=== PATIENT | female | born 1985 | race African-American/Black ===

== ENCOUNTER 2023-06-25 15:50 | Emergency (ER) | payer MEDICAID, SELFPAY ==
--- NOTE | 2023-06-25 15:52 | ED_ITS ---
HPI - General Adult General Chief complaint: Chest Pain Stated complaint: Vomiting/unable to eat Related Data Previous Rx's ?Medication ?Instructions ?Recorded blood sugar diagnostic (FreeStyle #300 ea 06/27/23 Lite Strips) blood-glucose meter (FreeStyle #1 ea 06/27/23 Lite Meter kit) lancets 28 gauge (FreeStyle #300 ea 06/27/23 Lancets) Allergies Allergy/AdvReac Type Severity Reaction Status Date / Time No Known Allergies Allergy Verified 12/27/23 12:41 [facility] Family History Family History Mother No problems noted. Father No problems noted. Daughter No problems noted. Daughter No problems noted. Daughter No problems noted. Brother No problems noted. Brother No problems noted. Brother No problems noted. Brother No problems noted. Brother No problems noted. Brother No problems noted. Social History Social History Housing: Other Alcohol intake: current Patient Tobacco Use Status: Never used Tobacco e-Cigarette/Vaping Use: Never Used Second Hand Smoke Exposure: No Current occupational status: unemployed Cognitive needs: No Hearing needs: No Vision needs: No Physical Exam ED Vital Signs: BMI result Body Mass Index 26.1 Course Course Course Narrative: This is an RME: Additional HPI, ROS, PE not included below will be deferred to primary provider. 38 y o female presenting for evaluation of shortness of breath and poor PO intake x few days. Reports she is unable to eat. Also reports that walking worsens her shortness of breath. Plan -- labs, EKG Medical Decision Making Lab Data 06/25/23 16:25 06/25/23 16:25 Labs: Lab Results 06/25/23 06/25/23 06/25/23 Range/Units 16:25 19:07 19:14 WBC 6.7 (4.8-10.8) X10*3/uL RBC 4.22 (4.20-5.50) X10*6/uL Hgb 11.5 L (12.0-16.0) g/dl Hct 34.3 L (37.0-47.0) % MCV 81.3 (80.0-98.0) fL MCH 27.3 (27.0-33.0) pg MCHC 33.5 (31.0-35.0) g/dl RDW 15.9 (11.0-16.0) % Plt Count 251 (160-400) X10*3/uL MPV 12.0 (9.4-12.3) fL Immature Gran % (Auto) 0.3 (0.0-0.4) % Neut % (Auto) 49.4 (45-73) % Lymph % (Auto) 42.5 H (20-40) % [place] % (Auto) 6.6 (2-11) % Eos % (Auto) 0.3 (0-4) % Baso % (Auto) 0.9 (0-2) % Lymph # (Auto) 2.9 (1.2-4.9) X10*3/uL [place] # (Auto) 0.4 (0.1-1.2) X10*3/uL Eos # (Auto) 0.0 (0.0-0.4) X10*3/uL Baso # (Auto) 0.1 (0.0-0.2) X10*3/uL Abs Immat Gran (auto) 0.02 (0.00-0.03) X10*3/uL Absolute Neuts (auto) 3.3 (2.0-8.3) x10*3/uL Absolute Nucleated RBC 0.000 (0.0-0.012) X10*3/uL Nucleated RBC % (auto) 0.0 (0.0-0.2) /100WBC VBG pH 7.40 (7.32-7.43) VBG pCO2 43 mmHg VBG pO2 32 mmHg VBG HCO3 26 (22-26) mmol/L VBG O2 Saturation 46.0 % VBG Base Excess 1.8 mmol/L Sodium 130 L (135-145) mmol/L Potassium 4.1 (3.3-5.1) mmol/L Chloride 98 (96-108) mmol/L Carbon Dioxide 22 (22-29) mmol/L Anion Gap 14 (12-20) BUN 8 L (9-16) mg/dL Creatinine 1.17 (0.5-1.4) mg/dL Estim Creat Clear Calc 55.8 Estimated GFR 52 Random Glucose 647 H* (60-115) mg/dL Calcium 9.4 (8.4-10.2) mg/dL Magnesium 1.6 (1.6-2.6) mg/dL Total Bilirubin 0.5 (0.0-1.0) mg/dL AST 11 (5-31) U/L ALT 6 (0-31) U/L Alkaline Phosphatase 83 (39-117) U/L Troponin I High Sens < 2.7 (<3.5-17.0) ng/L Total Protein 6.9 (6.5-8.0) g/dL Albumin 3.6 (3.5-5.0) g/dL Beta-Hydroxybutyrate 1.49 H (0.02-0.27) mmol/L Beta HCG, Quant < 2 mIU/mL Discharge Plan Discharge Clinical Impression: Eloped from emergency department Patient Disposition: Left W/O Completing Treatment Prescriptions: No Action (DME) blood-glucose meter [FreeStyle Lite Meter] Kit See Rx Instructions .ROUTE .MEDSUPPLY Qty: 1 0RF Rx Instructions: As directed (DME) FreeStyle Lite Strips Strip See Rx Instructions .ROUTE .MEDSUPPLY Qty: 300 3RF Rx Instructions: As directed check the BS TID (DME) lancets [FreeStyle Lancets] 28 gauge misc See Rx Instructions .ROUTE .MEDSUPPLY Qty: 300 3RF Rx Instructions: As directed check BS QD Discharge Date/Time: 06/25/23 21:21
--- NOTE | 2023-06-25 15:52 | ECG_ITS ---
Test Reason : CP Blood Pressure : / mmHG Vent. Rate : 106 BPM Atrial Rate : 106 BPM P-R Int : 156 ms QRS Dur : 084 ms QT Int : 342 ms P-R-T Axes : 054 039 051 degrees QTc Int : 454 ms Sinus tachycardia Otherwise normal ECG No previous ECGs available Referred By: Valdo Davis Electronically Signed By:RICHELLE BARFIELD
[2023-06-25 15:55] VITALS: BP 129/80; PULSE 120; RESP 18; TEMP 36.7; O2SAT 100; BMI 26.1
[2023-06-25 16:30] LABS: MANUAL DIFF FLAG NO
[2023-06-25 16:34] LABS: Basophils Absolute Auto 0.1 X10*3/uL (0.0-0.2); Basophils Percent Auto 0.9 % (0-2); Eosinophils Percent Auto 0.3 % (0-4); Hematocrit 34.3 % (37.0-47.0); Hemoglobin 11.5 g/dl (12.0-16.0); Imm Gran Abs Auto 0.02 X10*3/uL (0.00-0.03); Imm Gran Pct Auto 0.3 % (0.0-0.4); Lymphocytes Absolute Auto 2.9 X10*3/uL (1.2-4.9); Lymphocytes Percent Auto 42.5 % (20-40); Mean Corpuscular HGB Conc 33.5 g/dl (31.0-35.0); Mean Corpuscular Hemoglobin 27.3 pg (27.0-33.0); Mean Corpuscular Volume 81.3 fL (80.0-98.0); Monocytes Absolute Auto 0.4 X10*3/uL (0.1-1.2); Monocytes Percent Auto 6.6 % (2-11); Neutrophils Absolute Auto 3.3 x10*3/uL (2.0-8.3); Neutrophils Percent Auto 49.4 % (45-73); Platelet Count 251 X10*3/uL (160-400); Red Blood Count 4.22 X10*6/uL (4.20-5.50); Red Cell Distribution Width 15.9 % (11.0-16.0); White Blood Count 6.7 X10*3/uL (4.8-10.8)
[2023-06-25 17:03] LABS: Troponin-I High Sensitivity < 2.7 ng/L (<3.5-17.0)
[2023-06-25 17:07] LABS: Alanine Aminotransferase 6 U/L (0-31); Albumin Level 3.6 g/dL (3.5-5.0); Alkaline Phosphatase 83 U/L (39-117); Anion Gap 14 (12-20); Aspartate Amino Transferase 11 U/L (5-31); Bilirubin Total 0.5 mg/dL (0.0-1.0); Blood Urea Nitrogen 8 mg/dL (9-16); Calcium 9.4 mg/dL (8.4-10.2); Carbon Dioxide 22 mmol/L (22-29); Chloride 98 mmol/L (96-108); Creatinine Clr Calc Pharmacy 55.8; Estimated Glomerular Filt Rate 52; Glucose Random 647 mg/dL (60-115); HCG Quantitative < 2 mIU/mL; Magnesium 1.6 mg/dL (1.6-2.6); Potassium 4.1 mmol/L (3.3-5.1); Sodium 130 mmol/L (135-145); Total Protein 6.9 g/dL (6.5-8.0)
[2023-06-25 19:31] LABS: VBG Base Excess 1.8 mmol/L; VBG HCO3 26 mmol/L (22-26); VBG pCO2 43 mmHg; VBG pO2 32 mmHg
[2023-06-25 19:37] LABS: Venous Blood Gas Refer to POC result
[2023-06-25 19:38] LABS: Beta-Hydroxybutyrate 1.49 mmol/L (0.02-0.27)
--- NOTE | 2023-06-25 21:04 | PC.NURSE ---
attempt to bring pt back, no anwer no contact number listed notified provider
== END 2023-06-25 21:21 | disposition left against medical advice (07) ==
PROVIDERS: Physician Assistant; Emergency Provider Emergency Medicine
DX: R06.02 Shortness of breath (principal); E11.9 Type 2 diabetes mellitus without complications
CPT/HCPCS: 36415; 80053; 82010; 82803; 83735; 84484; 84702; 85025; 93005; 99283

== ENCOUNTER 2023-06-26 10:28 | Emergency (ER) | payer MEDICAID, SELFPAY ==
[2023-06-26 11:04] VITALS: BP 160/91; PULSE 91; RESP 18; TEMP 36.2; O2SAT 100; BMI 23.6
--- NOTE | 2023-06-26 11:06 | ED_ITS ---
HPI - General Adult General Chief complaint: General Medical Stated complaint: reason unknown , requires conference interpreter Time Seen by Provider: 06/26/23 12:38 Related Data Previous Rx's Medication Instructions Recorded metformin 500 mg tablet 500 mg PO BID #60 tabs 06/26/23 Allergies Allergy/AdvReac Type Severity Reaction Status Date / Time No Known Allergies Allergy Verified 06/26/23 11:11 Physical Exam ED Vital Signs: Vital Signs - 24 hr 06/26/23 11:04 Temperature 97.1 F Pulse Rate 91 Respiratory Rate 18 Blood Pressure 160/91 H Pulse Oximetry 100 Oxygen Delivery Method Room Air BMI result Body Mass Index 23.6 Course Course Course Narrative: RME: 38-year-old [place] Creole speaking female with unknown past medical history presenting to the ED complaining polyuria, polydipsia, decreased p.o. intake, and SOB x few days. Patient presented to the ED yesterday was seen in triage had labs drawn which showed a new diabetes and DKA. Patient without known history of diabetes. Glucose yesterday 647 with positive beta hydroxybutyrate. Repeat labs, UA, , 1 L LR ordered Full HPI, ROS and PE to be performed by primary ED provider. Medications Administered Discontinued Medications Generic Name Dose Route Start Last Admin Trade Name Freq PRN Reason Stop Dose Admin Lactated Ringer's 1,000 mls @ 999 mls/hr 06/26/23 11:15 06/26/23 12:56 Lr IV 06/26/23 12:15 999 mls/hr .Q1H1M DANNY Administration Sodium Chloride 1,000 mls @ 999 mls/hr 06/26/23 12:45 06/26/23 15:08 Ns IVCONT 06/26/23 13:45 Infused .Q1H1M DANNY Infusion Sodium Chloride 1,000 mls @ 999 mls/hr 06/26/23 12:45 06/26/23 13:08 Ns IVCONT 06/26/23 13:45 999 mls/hr .Q1H1M DANNY Administration Insulin Human Lispro 5 unit 06/26/23 12:37 06/26/23 13:07 Insulin Lispro 100 Unit/Ml 3 Ml Vial SUBCUT 06/26/23 12:38 5 unit ONCE ONE Administration Medical Decision Making Lab Data 06/26/23 11:20 06/26/23 11:20 Labs: Lab Results 1006/26/23 06/26/23 Range/Units 11:20 11:24 11:31 WBC 5.4 (4.8-10.8) X10*3/uL RBC 4.19 L (4.20-5.50) X10*6/uL Hgb 11.6 L (12.0-16.0) g/dl Hct 34.2 L (37.0-47.0) % MCV 81.6 (80.0-98.0) fL MCH 27.7 (27.0-33.0) pg MCHC 33.9 (31.0-35.0) g/dl RDW 16.2 H (11.0-16.0) % Plt Count 254 (160-400) X10*3/uL MPV 11.4 (9.4-12.3) fL Immature Gran % (Auto) 0.4 (0.0-0.4) % Neut % (Auto) 54.3 (45-73) % Lymph % (Auto) 37.5 (20-40) % [place] % (Auto) 6.7 (2-11) % Eos % (Auto) 0.2 (0-4) % Baso % (Auto) 0.9 (0-2) % Lymph # (Auto) 2.0 (1.2-4.9) X10*3/uL [place] # (Auto) 0.4 (0.1-1.2) X10*3/uL Eos # (Auto) 0.0 (0.0-0.4) X10*3/uL Baso # (Auto) 0.1 (0.0-0.2) X10*3/uL Abs Immat Gran (auto) 0.02 (0.00-0.03) X10*3/uL Absolute Neuts (auto) 2.9 (2.0-8.3) x10*3/uL Absolute Nucleated RBC 0.000 (0.0-0.012) X10*3/uL Nucleated RBC % (auto) 0.0 (0.0-0.2) /100WBC VBG pH 7.36 (7.32-7.43) VBG pCO2 41 mmHg VBG pO2 38 mmHg VBG HCO3 23 (22-26) mmol/L VBG O2 Saturation 53.0 % VBG Base Excess -1.8 mmol/L Sodium 130 L (135-145) mmol/L Potassium 4.3 (3.3-5.1) mmol/L Chloride 99 (96-108) mmol/L Carbon Dioxide 21 L (22-29) mmol/L Anion Gap 14 (12-20) BUN 7 L (9-16) mg/dL Creatinine 1.00 (0.5-1.4) mg/dL Estim Creat Clear Calc 66.5 Estimated GFR > 60 POC Glucose (60-115) mg/dL Random Glucose 574 H* (60-115) mg/dL Calcium 9.5 (8.4-10.2) mg/dL Magnesium 1.6 (1.6-2.6) mg/dL Total Bilirubin 1.0 (0.0-1.0) mg/dL Direct Bilirubin 0.2 (0.0-0.5) mg/dL AST 13 (5-31) U/L ALT 7 (0-31) U/L Alkaline Phosphatase 79 (39-117) U/L Troponin I High Sens < 2.7 (<3.5-17.0) ng/L Total Protein 6.8 (6.5-8.0) g/dL Albumin 3.6 (3.5-5.0) g/dL Lipase 28 (8-78) U/L Beta-Hydroxybutyrate 1.96 H (0.02-0.27) mmol/L Urine Color Yellow Urine Appearance Clear Urine pH 5.5 (5.0-9.0) Ur Specific [place] 1.025 (1.005-1.025) Urine Protein Negative (Neg-Trace) mg/dL Urine Glucose (UA) >=1000 H (Negative) mg/dL Urine Ketones 15 (Negative) mg/dL Urine Blood Negative (Negative) Urine Nitrite Negative (Negative) Ur Leukocyte Esterase Small (1+) H (Negative) Urine RBC 0-2 (0-2) /HPF Urine WBC 21-50 H (0-5) /HPF Ur Squamous Epith Cells 0-2 (0-2) /HPF Urine Bacteria None Seen (None Seen) Hyaline Casts 0-2 (0-2) /LPF Urine Yeast Present Urine Test NEGATIVE (NEGATIVE) 06/26/23 Range/Units 13:43 WBC (4.8-10.8) X10*3/uL RBC (4.20-5.50) X10*6/uL Hgb (12.0-16.0) g/dl Hct (37.0-47.0) % MCV (80.0-98.0) fL MCH (27.0-33.0) pg MCHC (31.0-35.0) g/dl RDW (11.0-16.0) % Plt Count (160-400) X10*3/uL MPV (9.4-12.3) fL Immature Gran % (Auto) (0.0-0.4) % Neut % (Auto) (45-73) % Lymph % (Auto) (20-40) % [place] % (Auto) (2-11) % Eos % (Auto) (0-4) % Baso % (Auto) (0-2) % Lymph # (Auto) (1.2-4.9) X10*3/uL [place] # (Auto) (0.1-1.2) X10*3/uL Eos # (Auto) (0.0-0.4) X10*3/uL Baso # (Auto) (0.0-0.2) X10*3/uL Abs Immat Gran (auto) (0.00-0.03) X10*3/uL Absolute Neuts (auto) (2.0-8.3) x10*3/uL Absolute Nucleated RBC (0.0-0.012) X10*3/uL Nucleated RBC % (auto) (0.0-0.2) /100WBC VBG pH (7.32-7.43) VBG pCO2 mmHg VBG pO2 mmHg VBG HCO3 (22-26) mmol/L VBG O2 Saturation % VBG Base Excess mmol/L Sodium (135-145) mmol/L Potassium (3.3-5.1) mmol/L Chloride (96-108) mmol/L Carbon Dioxide (22-29) mmol/L Anion Gap (12-20) BUN (9-16) mg/dL Creatinine (0.5-1.4) mg/dL Estim Creat Clear Calc Estimated GFR POC Glucose 358 H* (60-115) mg/dL Random Glucose (60-115) mg/dL Calcium (8.4-10.2) mg/dL Magnesium (1.6-2.6) mg/dL Total Bilirubin (0.0-1.0) mg/dL Direct Bilirubin (0.0-0.5) mg/dL AST (5-31) U/L ALT (0-31) U/L Alkaline Phosphatase (39-117) U/L Troponin I High Sens (<3.5-17.0) ng/L Total Protein (6.5-8.0) g/dL Albumin (3.5-5.0) g/dL Lipase (8-78) U/L Beta-Hydroxybutyrate (0.02-0.27) mmol/L Urine Color Urine Appearance Urine pH (5.0-9.0) Ur Specific [place] (1.005-1.025) Urine Protein (Neg-Trace) mg/dL Urine Glucose (UA) (Negative) mg/dL Urine Ketones (Negative) mg/dL Urine Blood (Negative) Urine Nitrite (Negative) Ur Leukocyte Esterase (Negative) Urine RBC (0-2) /HPF Urine WBC (0-5) /HPF Ur Squamous Epith Cells (0-2) /HPF Urine Bacteria (None Seen) Hyaline Casts (0-2) /LPF Urine Yeast Urine Test (NEGATIVE) Discharge Plan Discharge Clinical Impression: Diabetes mellitus, new onset Patient Disposition: Home, Self-Care Instructions: Type 2 Diabetes in Adults: New Diagnosis (DC) Additional Instructions: you have an appointment Tomorrow with Dr Jin at 9.30 AM Prescriptions: New metformin 500 mg tablet 500 mg PO BID Qty: 60 0RF Referrals: Carlita Jin MD [Physician] - 06/27/23 9:30 am
[2023-06-26 11:27] LABS: MANUAL DIFF FLAG NO
[2023-06-26 11:28] LABS: Basophils Absolute Auto 0.1 X10*3/uL (0.0-0.2); Basophils Percent Auto 0.9 % (0-2); Eosinophils Percent Auto 0.2 % (0-4); Hematocrit 34.2 % (37.0-47.0); Hemoglobin 11.6 g/dl (12.0-16.0); Imm Gran Abs Auto 0.02 X10*3/uL (0.00-0.03); Imm Gran Pct Auto 0.4 % (0.0-0.4); Lymphocytes Percent Auto 37.5 % (20-40); Mean Corpuscular HGB Conc 33.9 g/dl (31.0-35.0); Mean Corpuscular Hemoglobin 27.7 pg (27.0-33.0); Mean Corpuscular Volume 81.6 fL (80.0-98.0); Mean Platelet Volume 11.4 fL (9.4-12.3); Monocytes Absolute Auto 0.4 X10*3/uL (0.1-1.2); Monocytes Percent Auto 6.7 % (2-11); Neutrophils Absolute Auto 2.9 x10*3/uL (2.0-8.3); Neutrophils Percent Auto 54.3 % (45-73); Platelet Count 254 X10*3/uL (160-400); Red Blood Count 4.19 X10*6/uL (4.20-5.50); Red Cell Distribution Width 16.2 % (11.0-16.0); White Blood Count 5.4 X10*3/uL (4.8-10.8)
[2023-06-26 11:29] LABS: VBG Base Excess -1.8 mmol/L; VBG HCO3 23 mmol/L (22-26); VBG pCO2 41 mmHg; VBG pH 7.36 (7.32-7.43); VBG pO2 38 mmHg
[2023-06-26 11:30] LABS: Venous Blood Gas Refer to POC result
[2023-06-26 11:40] LABS: Appearance Urine Clear; Color Urine Yellow; Glucose Urine UA >=1000 mg/dL (Negative); Leukocyte Esterase Urine Small (1+) (Negative); Nitrite Urine Negative (Negative); PH 5.5 (5.0-9.0); Specific Gravity - Urine 1.025 (1.005-1.025); UMIC TRIGGER UACC YES; Urine Blood Negative (Negative); Urine Ketones 15 mg/dL (Negative); Urine Protein Negative (Neg-Trace)
[2023-06-26 11:43] LABS: UPreg QC Valid YES; Urine Pregnancy NEGATIVE (NEGATIVE)
[2023-06-26 11:50] LABS: Bacteria Urine None Seen (None Seen); Hyaline Casts Urine 0-2 /LPF (0-2); RBC Urine 0-2 /HPF (0-2); Squamous Epithelial Cell Urine 0-2 /HPF (0-2); UACC Culture Trigger YES; WBC Urine 21-50 /HPF (0-5)
[2023-06-26 11:52] LABS: Troponin-I High Sensitivity < 2.7 ng/L (<3.5-17.0)
[2023-06-26 11:59] LABS: Alanine Aminotransferase 7 U/L (0-31); Albumin Level 3.6 g/dL (3.5-5.0); Alkaline Phosphatase 79 U/L (39-117); Anion Gap 14 (12-20); Aspartate Amino Transferase 13 U/L (5-31); Beta-Hydroxybutyrate 1.96 mmol/L (0.02-0.27); Bilirubin Direct 0.2 mg/dL (0.0-0.5); Blood Urea Nitrogen 7 mg/dL (9-16); Calcium 9.5 mg/dL (8.4-10.2); Carbon Dioxide 21 mmol/L (22-29); Chloride 99 mmol/L (96-108); Creatinine Clr Calc Pharmacy 66.5; Estimated Glomerular Filt Rate > 60; Glucose Random 574 mg/dL (60-115); Magnesium 1.6 mg/dL (1.6-2.6); Potassium 4.3 mmol/L (3.3-5.1); Sodium 130 mmol/L (135-145); Total Protein 6.8 g/dL (6.5-8.0)
[2023-06-26 12:19] LABS: Lipase 28 U/L (8-78)
--- NOTE | 2023-06-26 12:44 | ED.GENADULT ---
HPI - General Adult General Chief complaint: General Medical Stated complaint: reason unknown , requires nuclear waste management engineer Time Seen by Provider: 06/26/23 12:38 Source: patient Mode of arrival: ambulatory Limitations: no limitations History of Present Illness HPI narrative: This is a 38 years old female presented to the emergency department with chief complaint on malaise weakness polyuria polydipsia. She speaks Creole of the history was obtained with nuclear waste management engineer. [place] the symptoms have been ongoing for about 2 weeks she came last night for chest pain and then she left the without being seen. she returned today. Onset (ago): week(s) (2) Radiation: non-radiation Severity: moderate Pain Consistency: constant Relieving factors: none Exacerbating factors: none Associated symptoms: denies other symptoms Related Data Previous Rx's Medication Instructions Recorded metformin 500 mg tablet 500 mg PO BID #60 tabs 06/26/23 Allergies Allergy/AdvReac Type Severity Reaction Status Date / Time No Known Allergies Allergy Verified 06/26/23 11:11 Review of Systems Constitutional: Constitutional: Reports fatigue Comments: weakness Cardiovascular: Cardiovascular: Reports no additional cardiovascular complaints Gastrointestinal: Gastrointestinal: Reports nausea Endocrine: Endocrine: Reports fatigue [facility] Past Medical History [facility] Narrative: none Physical Exam ED Vital Signs: Vital Signs - 24 hr 06/26/23 11:04 Temperature 97.1 F Pulse Rate 91 Respiratory Rate 18 Blood Pressure 160/91 H Pulse Oximetry 100 Oxygen Delivery Method Room Air BMI result Body Mass Index 23.6 Const General: cooperative Nutritional Appearance: well nourished Orientation/consciousness: patient oriented x3 HENMT Head: Yes normal to inspection General nose exam: Normal external nose present Face and sinus: Yes normal facial exam Neck Neck: Yes normal visual inspection Chest Chest palpation & inspection: normal inspection of the chest Cardio Jugular venous distension: no JVD Rate: regular rate Rhythm: regular rhythm GI Inspection: Yes normal to inspection Palpation (GI): Soft to palpation Percussion: Yes normal to percussion Auscultation: normal bowel sounds Skin General skin exam: no rashes or lesions noted and elasticity normal Lesions: no lesions Neuro General: patient oriented x3 Cranial nerves: Yes CN's II-XII intact bilaterally Course Reevaluation(s) Reevaluation #1: I discussed the case with hospitalist Dr Adhikari for possible admission because new onset of diabetes. Dr Adhikari decline the admission stating that does not meet criteria for admission Time: 14:08 Reevaluation #2: I will consult case checker to arrange follow up/diabetic education Time: 14:10 Reevaluation #3: PAXTON arrange follow up with dr Jin Tomorrow Anion gap is normal got IV fluids ,I will d/c on glucophage ,blood sugar 158,pt is very comfortable with the plan of care Time: 15:27 Medications Administered Discontinued Medications Generic Name Dose Route Start Last Admin Trade Name Freq PRN Reason Stop Dose Admin Lactated Ringer's 1,000 mls @ 999 mls/hr 06/26/23 11:15 06/26/23 12:56 Lr IV 06/26/23 12:15 999 mls/hr .Q1H1M DANNY Administration Sodium Chloride 1,000 mls @ 999 mls/hr 06/26/23 12:45 06/26/23 15:08 Ns IVCONT 06/26/23 13:45 Infused .Q1H1M DANNY Infusion Sodium Chloride 1,000 mls @ 999 mls/hr 06/26/23 12:45 06/26/23 13:08 Ns IVCONT 06/26/23 13:45 999 mls/hr .Q1H1M DANNY Administration Insulin Human Lispro 5 unit 06/26/23 12:37 06/26/23 13:07 Insulin Lispro 100 Unit/Ml 3 Ml Vial SUBCUT 06/26/23 12:38 5 unit ONCE ONE Administration Medical Decision Making Medical Decision Making [facility] Narrative: Patient presented with weakness malaise we get blood work administer IV fluid and reassess Differential Diagnosis Differential Diagnoses: The differential diagnosis associated with the presentation includes Electrolytes abnormality/dehydrated Admission/Observation Consideration of admission/observation: Escalation of care including admission/observation considered Lab Data [facility] Lab Attestation statement: I reviewed the patient's lab results. 06/26/23 11:20 06/26/23 11:20 Labs: Lab Results 06/26/23 06/26/23 06/26/23 Range/Units 11:20 11:24 11:31 WBC 5.4 (4.8-10.8) X10*3/uL RBC 4.19 L (4.20-5.50) X10*6/uL Hgb 11.6 L (12.0-16.0) g/dl Hct 34.2 L (37.0-47.0) % MCV 81.6 (80.0-98.0) fL MCH 27.7 (27.0-33.0) pg MCHC 33.9 (31.0-35.0) g/dl RDW 16.2 H (11.0-16.0) % Plt Count 254 (160-400) X10*3/uL MPV 11.4 (9.4-12.3) fL Immature Gran % (Auto) 0.4 (0.0-0.4) % Neut % (Auto) 54.3 (45-73) % Lymph % (Auto) 37.5 (20-40) % [place] % (Auto) 6.7 (2-11) % Eos % (Auto) 0.2 (0-4) % Baso % (Auto) 0.9 (0-2) % Lymph # (Auto) 2.0 (1.2-4.9) X10*3/uL [place] # (Auto) 0.4 (0.1-1.2) X10*3/uL Eos # (Auto) 0.0 (0.0-0.4) X10*3/uL Baso # (Auto) 0.1 (0.0-0.2) X10*3/uL Abs Immat Gran (auto) 0.02 (0.00-0.03) X10*3/uL Absolute Neuts (auto) 2.9 (2.0-8.3) x10*3/uL Absolute Nucleated RBC 0.000 (0.0-0.012) X10*3/uL Nucleated RBC % (auto) 0.0 (0.0-0.2) /100WBC VBG pH 7.36 (7.32-7.43) VBG pCO2 41 mmHg VBG pO2 38 mmHg VBG HCO3 23 (22-26) mmol/L VBG O2 Saturation 53.0 % VBG Base Excess -1.8 mmol/L Sodium 130 L (135-145) mmol/L Potassium 4.3 (3.3-5.1) mmol/L Chloride 99 (96-108) mmol/L Carbon Dioxide 21 L (22-29) mmol/L Anion Gap 14 (12-20) BUN 7 L (9-16) mg/dL Creatinine 1.00 (0.5-1.4) mg/dL Estim Creat Clear Calc 66.5 Estimated GFR > 60 POC Glucose (60-115) mg/dL Random Glucose 574 H* (60-115) mg/dL Calcium 9.5 (8.4-10.2) mg/dL Magnesium 1.6 (1.6-2.6) mg/dL Total Bilirubin 1.0 (0.0-1.0) mg/dL Direct Bilirubin 0.2 (0.0-0.5) mg/dL AST 13 (5-31) U/L ALT 7 (0-31) U/L Alkaline Phosphatase 79 (39-117) U/L Troponin I High Sens < 2.7 (<3.5-17.0) ng/L Total Protein 6.8 (6.5-8.0) g/dL Albumin 3.6 (3.5-5.0) g/dL Lipase 28 (8-78) U/L Beta-Hydroxybutyrate 1.96 H (0.02-0.27) mmol/L Urine Color Yellow Urine Appearance Clear Urine pH 5.5 (5.0-9.0) Ur Specific [place] 1.025 (1.005-1.025) Urine Protein Negative (Neg-Trace) mg/dL Urine Glucose (UA) >=1000 H (Negative) mg/dL Urine Ketones 15 (Negative) mg/dL Urine Blood Negative (Negative) Urine Nitrite Negative (Negative) Ur Leukocyte Esterase Small (1+) H (Negative) Urine RBC 0-2 (0-2) /HPF Urine WBC 21-50 H (0-5) /HPF Ur Squamous Epith Cells 0-2 (0-2) /HPF Urine Bacteria None Seen (None Seen) Hyaline Casts 0-2 (0-2) /LPF Urine Yeast Present Urine Test NEGATIVE (NEGATIVE) 06/26/23 Range/Units 13:43 WBC (4.8-10.8) X10*3/uL RBC (4.20-5.50) X10*6/uL Hgb (12.0-16.0) g/dl Hct (37.0-47.0) % MCV (80.0-98.0) fL MCH (27.0-33.0) pg MCHC (31.0-35.0) g/dl RDW (11.0-16.0) % Plt Count (160-400) X10*3/uL MPV (9.4-12.3) fL Immature Gran % (Auto) (0.0-0.4) % Neut % (Auto) (45-73) % Lymph % (Auto) (20-40) % [place] % (Auto) (2-11) % Eos % (Auto) (0-4) % Baso % (Auto) (0-2) % Lymph # (Auto) (1.2-4.9) X10*3/uL [place] # (Auto) (0.1-1.2) X10*3/uL Eos # (Auto) (0.0-0.4) X10*3/uL Baso # (Auto) (0.0-0.2) X10*3/uL Abs Immat Gran (auto) (0.00-0.03) X10*3/uL Absolute Neuts (auto) (2.0-8.3) x10*3/uL Absolute Nucleated RBC (0.0-0.012) X10*3/uL Nucleated RBC % (auto) (0.0-0.2) /100WBC VBG pH (7.32-7.43) VBG pCO2 mmHg VBG pO2 mmHg VBG HCO3 (22-26) mmol/L VBG O2 Saturation % VBG Base Excess mmol/L Sodium (135-145) mmol/L Potassium (3.3-5.1) mmol/L Chloride (96-108) mmol/L Carbon Dioxide (22-29) mmol/L Anion Gap (12-20) BUN (9-16) mg/dL Creatinine (0.5-1.4) mg/dL Estim Creat Clear Calc Estimated GFR POC Glucose 358 H* (60-115) mg/dL Random Glucose (60-115) mg/dL Calcium (8.4-10.2) mg/dL Magnesium (1.6-2.6) mg/dL Total Bilirubin (0.0-1.0) mg/dL Direct Bilirubin (0.0-0.5) mg/dL AST (5-31) U/L ALT (0-31) U/L Alkaline Phosphatase (39-117) U/L Troponin I High Sens (<3.5-17.0) ng/L Total Protein (6.5-8.0) g/dL Albumin (3.5-5.0) g/dL Lipase (8-78) U/L Beta-Hydroxybutyrate (0.02-0.27) mmol/L Urine Color Urine Appearance Urine pH (5.0-9.0) Ur Specific [place] (1.005-1.025) Urine Protein (Neg-Trace) mg/dL Urine Glucose (UA) (Negative) mg/dL Urine Ketones (Negative) mg/dL Urine Blood (Negative) Urine Nitrite (Negative) Ur Leukocyte Esterase (Negative) Urine RBC (0-2) /HPF Urine WBC (0-5) /HPF Ur Squamous Epith Cells (0-2) /HPF Urine Bacteria (None Seen) Hyaline Casts (0-2) /LPF Urine Yeast Urine Test (NEGATIVE) Discharge Plan Discharge Clinical Impression: Diabetes mellitus, new onset Patient Disposition: Home, Self-Care Instructions: Type 2 Diabetes in Adults: New Diagnosis (DC) Additional Instructions: you have an appointment Tomorrow with Dr Jin at 9.30 AM Prescriptions: New metformin 500 mg tablet 500 mg PO BID Qty: 60 0RF Referrals: Carlita Jin MD [Physician] - 06/27/23 9:30 am
[2023-06-26] MEDS: Lactated Ringers 1,000 ML 999 ML IV (12:56)
[2023-06-26] MEDS: Insulin Lispro 100 UNIT/ML 3 ML VIAL SUBCUT (13:07)
[2023-06-26] MEDS: 0.9 % Sodium Chloride 1,000 ML 999 ML IVCONT ×3 (13:08→15:31)
[2023-06-26 13:46] LABS: Glucose, Whole Blood 358 mg/dL (60-115)
--- NOTE | 2023-06-26 14:35 | MHC.CM.ED ---
Received case management consult from Dr Locke.Patient came to the ER today and was found to be a new diabetic. Patient is primarily [place] Creole speaking. Patient has [facility] but doesn't have a PCP. Spoke with [facility]. Dr Jin has availability tomorrow at 930am. Patient will need to call [employer] at [phone] and change her insurance to [facility]. She will also need to list Dr Jin. Met with patient and help of [employer] aerial photograph interpreter, Pavan #[id number]. All of this information was explained. Patient verbalized understanding. Dr Locke aware and will reassess patient. Continue to monitor for d/c needs.
[2023-06-26 16:16] LABS: Glucose, Whole Blood 226 mg/dL (60-115)
== END 2023-06-26 16:20 | disposition home or self-care (01) ==
PROVIDERS: Physician Assistant; Emergency Provider Emergency Medicine
DX: E11.9 Type 2 diabetes mellitus without complications (principal); R11.2 Nausea with vomiting, unspecified; Z79.899 Other long term (current) drug therapy
CPT/HCPCS: 36415; 80048; 80076; 81001; 81025; 82010; 82803; 82947; 83690; 83735; 84484; 85025; 87086; 96360; 96361; 99283; 99284

== ENCOUNTER 2023-06-27 09:04 | Outpatient (AMB) | payer MEDICAID, SELFPAY ==
[2023-06-27 09:12] VITALS: BP 118/76; PULSE 64; O2SAT 98; BMI 27.3
--- NOTE | 2023-06-27 09:12 | MHC.PC.OV ---
Vital Signs 06/27/23 09:12 Height 5 ft Weight 140 lb BMI 27.3 BP 118/76 Blood Pressure Location Lt brachial Position Sitting Pulse 64 Pulse Source Pulse Oximeter Pulse Oximetry (%) 98 Oxygen Delivery Method Room Air Intake Visit Reasons: New onset diabetes Allergies No Known Allergies Allergy (Verified 06/27/23 09:26) Medication List - Last Reconciled 06/27/23 by Carlita Jin MD metformin 500 mg PO BID Tobacco use date assessed: 06/27/23 Dental Screening Dental Screen Date: 06/27/23 Did you have a dental visit in the last 12 months?: No Did you have a dental problem in the last 6 months where you did not have access to dental care?: No Was dental information given to patient?: No HPI New onset diabetes HPI Details 38-year-old overweight female coming in for the 1st time. Patient was in the emergency room in June for for polyuria polydipsia and shortness of breath diagnosis of new onset diabetes mellitus and DKA glucose was 647 blood work showing mild anemia hyponatremia with UTI. mary [id number] with regards to diabetes and the side effects and complications as well as medications. Discussion about diet discussion about referral to Endocrinology was done and that we need to do some workup. [facility] Family History (Updated 06/27/23 @ 09:30 by Cammie Coleman [facility]) Mother No problems noted. Father No problems noted. Daughter No problems noted. Daughter No problems noted. Daughter No problems noted. Brother No problems noted. Brother No problems noted. Brother No problems noted. Brother No problems noted. Brother No problems noted. Brother No problems noted. Social History (Updated 06/27/23 @ 09:51 by Carlita Jin MD) Housing: Other Alcohol intake: current Patient Tobacco Use Status: Never used Tobacco e-Cigarette/Vaping Use: Never Used Second Hand Smoke Exposure: No Current occupational status: unemployed Cognitive needs: No Hearing needs: No Vision needs: No Questionnaire PHQ-9 Over the last 2 weeks, how often have you been bothered by any of the following problems? 1. Little interest or pleasure in doing things: several days 2. Feeling down, depressed, or hopeless: several days 3. Trouble falling or staying asleep, or sleeping too much: several days 4. Feeling tired or having little energy: several days 5. Poor appetite or overeating: not at all 6. Feeling bad about yourself - or that you are a failure or have let yourself or your family down: several days 7. Trouble concentrating on things, such as reading the newspaper or watching television: several days 8. Moving or speaking so slowly that other people could have noticed. Or the opposite - being so fidgety or restless that you have been moving around a lot more than usual: not at all 9. Thoughts that you would be better off or of hurting yourself in some way: not at all Total score: 6 Depression Screening Interpretation: Positive Depression Screening Done: Yes Source: Developed by Drs. Eduardo Araujo, Ximena Chavez, Nabeel Goode and colleagues, with an educational reinaldo from [employer]. Thrive Questionnaire Date Thrive assessed: 06/27/23 I am a: Patient What is your living situation today?: I have a steady place to live Within the past 12 months, did the food you bought not last and you didn't have the money to get more?: Never true Within the past 12 months, did you worry whether your food would run out before you got money to buy more?: Never true Do you have trouble paying for medicines?: No Do you have trouble getting transportation to medical appointments?: No Do you have trouble paying your heating and electricity bill?: No Do you have trouble taking care of your child, family member or friend?: No Do you have trouble with day-to-day activities such as bathing, preparing meals, shopping, managing finances, etc.?: No Are you currently unemployed and looking for a job?: No Are you interested in more education?: No Currently or been in a relationship where the following occur: no concerns reported AUDIT C Alcohol Use Questionnaire (AUDIT-C) 1. How often do you have a drink containing alcohol?: Never 3. How often do you have six or more drinks on one occasion?: Never Total Score: 0 AMANUEL-7 AMB Questionnaire AMANUEL-7 Date AMANUEL - 7 assessed: 06/27/23 Feeling nervous, anxious, or on edge: 1 = Several days Not being able to stop or control worryin = Not at all Worrying too much about different things: 1 = Several days Trouble relaxin = Several days Being so restless that it is hard to sit still: 1 = Several days Becoming easily annoyed or irritable: 1 = Several days Feeling afraid as if something awful might happen: 2 = More than half the days Total AMANUEL-7 score (0-4 normal; 5-9 mild; 10-14 moderate; 15-21 severe): 7 Source: Developed by Drs. Eduardo Araujo, Ximena Chavez, Nabeel Goode and colleagues, with an educational reinaldo from [employer]. Physical exam (Primary Care) Vital Signs: Last Vital Signs Pulse 64 06/27/23 09:12 BP 118/76 06/27/23 09:12 Pulse Ox 98 06/27/23 09:12 Oxygen Delivery Method Room Air 06/27/23 09:12 BMI result Body Mass Index 27.3 Tobacco/Smoking Status: Tobacco use Status Tobacco use date assessed 06/27/23 06/27/23 09:32 Patient Tobacco Use Status Never used Tobacco 06/27/23 09:51 e-Cigarette/Vaping Use Never Used 06/27/23 09:51 PHQ-9: PHQ-9 Score PHQ-9: Total score 6 06/27/23 18:17 Depression Screening Interpretation: Positive Thrive Assessment: Date of Thrive Assessment Date Thrive assessed 06/27/23 06/27/23 09:13 Currently or been in a relationship where the following occur: no concerns reported Const General: alert; No acute distress Eyes Conjunctivae: conjunctivae normal Resp Auscultation: clear to auscultation bilaterally Cardio Rate: regular rate Rhythm: regular rhythm GI Inspection: Yes normal to inspection Extrem General: Yes normal to inspection and No edema Office Procedures Flu Questionnaire Does the patient have a severe egg allergy?: No Does the patient have severe life threatening allergies?: No Does the patient have a fever or illness today?: No Has the patient ever had Guillain-Hardy Syndrome?: No Has the patient ever had any past reaction to a flu shot?: No Results AMB Hemoglobin A1c AMB Hemoglobin A1c 14.0 % Last Edit by Cammie Coleman CMA on 06/27/23 09:48 Immunizations flu vacc [id number] 6mos up(PF) 60 mcg(15 mcgx4)/0.5 mL IM syringe Performing Provider: Carlita Jin MD [facility] Administered by: Cammie Coleman CMA on 06/27/23 10:20 Dose Route Admin Location Dispensed Lot Number Expiration Date [employer] Manager 0.5 mL IM Left Deltoid 0.5 mL [id number] 03/22/24 89769-327-36 DataRank VIS Given Date VIS Provided VIS Publication Date 06/27/23 Single Vaccine 21 Eligibility Eligibility Date Funding Source Not [facility] Eligible 06/27/23 Private Results Reviewed Results Reviewed: Laboratory Last Values Hgb A1c (Clinic) 14.0 % (4.0-6.0) H 06/27/23 09:13 Assessment and Plan Assessment & Plan (1) Type 2 diabetes mellitus with hyperglycemia: Code(s): E11.65 - Type 2 diabetes mellitus with hyperglycemia Plan: Decrease the amount of carbohydrate intake, pasta, bread, rice and potatoes are all sugar and that is aside from all the sweet stuff, remember that fruits are good but they are Sweet also. Hemoglobin A1c goal of less than 6.5. Blood work requested referral to Endocrinology referral to cage/vault supervisor referral to Ophthalmology (2) Overweight (BMI 25.0-29.9): Code(s): E66.3 - Overweight Plan: Diet and exercise (3) UTI (urinary tract infection): Code(s): N39.0 - Urinary tract infection, site not specified Plan: Urinalysis noted to have white blood cell antibiotics sent. Advised to increase oral fluids Orders: Orders Insulin Today E11.65 - Type 2 diabetes mellitus with hyperglycemia Thyroid Stimulating Hormone Today E11.65 - Type 2 diabetes mellitus with hyperglycemia Vitamin B12 and Folate Today E11.65 - Type 2 diabetes mellitus with hyperglycemia Ferritin Today E11.65 - Type 2 diabetes mellitus with hyperglycemia Reticulocyte Count Today E11.65 - Type 2 diabetes mellitus with hyperglycemia IRON PROFILE Today E11.65 - Type 2 diabetes mellitus with hyperglycemia UA w Microscopic Today E11.65 - Type 2 diabetes mellitus with hyperglycemia AMB Hemoglobin A1c Today Z13.9 - Encounter for screening, unspecified Glutamic acid decarboxylase Ab Today E11.65 - Type 2 diabetes mellitus with hyperglycemia Insulin Auto Antibody Today E11.65 - Type 2 diabetes mellitus with hyperglycemia Microalbumin, Random (w Creat) Today E11.65 - Type 2 diabetes mellitus with hyperglycemia Creatinine Urine Today E11.65 - Type 2 diabetes mellitus with hyperglycemia Free T4 (Free Thyroxine) Today E11.65 - Type 2 diabetes mellitus with hyperglycemia Vitamin D 25-OH Total Today E11.65 - Type 2 diabetes mellitus with hyperglycemia Lipid Panel Today E11.65 - Type 2 diabetes mellitus with hyperglycemia, E78.00 - Pure hypercholesterolemia, unspecified Complete Blood Count Auto Diff Today E11.65 - Type 2 diabetes mellitus with hyperglycemia Influenza [id number] Immunization Today Z23 - Encounter for immunization Referrals Ophthalmology Referral E11.65 - Type 2 diabetes mellitus with hyperglycemia Podiatry Referral E11.65 - Type 2 diabetes mellitus with hyperglycemia Nutrition/Dietitian Referral E11.65 - Type 2 diabetes mellitus with hyperglycemia Endocrinology Referral E11.65 - Type 2 diabetes mellitus with hyperglycemia Medications: New blood-glucose meter (FreeStyle Lite Meter kit) As directed 1 ea 0RF E11.65 - Type 2 diabetes mellitus with hyperglycemia blood sugar diagnostic (FreeStyle Lite Strips) As directed check the BS TID 300 ea 3RF E11.65 - Type 2 diabetes mellitus with hyperglycemia, E11.9 - Type 2 diabetes mellitus without complications sulfamethoxazole-trimethoprim 800-160 mg (Bactrim DS) 1 tab PO BID 14 tabs 0RF E11.65 - Type 2 diabetes mellitus with hyperglycemia lancets (FreeStyle Lancets) As directed check BS QD 300 ea 3RF E11.65 - Type 2 diabetes mellitus with hyperglycemia Coding Level of Care Code New Pt Level 4 (92665) Diagnoses Type 2 diabetes mellitus with hyperglycemia E11.65 Overweight (BMI 25.0-29.9) E66.3 UTI (urinary tract infection) N39.0
== END 2023-06-27 10:36 | disposition home or self-care (01) ==
PROVIDERS: Visit Provider Internal Medicine
DX: Z23 Encounter for immunization (principal); E11.65 Type 2 diabetes mellitus with hyperglycemia; E66.3 Overweight; N39.0 Urinary tract infection, site not specified
CPT/HCPCS: 83036; 90471; 90686; 99204

== ENCOUNTER 2023-08-13 07:32 | Outpatient (AMB) | payer OTHER, SELFPAY ==
[2023-08-13 07:37] VITALS: BP 104/62; PULSE 70; O2SAT 98; BMI 25.6
--- NOTE | 2023-08-13 07:37 | MHC.PC.OV ---
Vital Signs 08/13/23 07:37 Height 5 ft Weight 131 lb BMI 25.6 BP 104/62 Blood Pressure Location Lt brachial Position Sitting Pulse 70 Pulse Source Pulse Oximeter Pulse Oximetry (%) 98 Oxygen Delivery Method Room Air Intake Visit Reasons: [place] Maintenance Manager Required: Yes City Maintenance Manager Language: Michelle Vargas City Maintenance Manager Name: [id number] Information Interpreted: non-clinical & clinical Allergies No Known Allergies Allergy (Verified 08/13/23 07:51) Medication List - Last Reconciled 08/13/23 by WOOD Russo blood sugar diagnostic (FreeStyle Lite Strips) As directed check the BS TID blood-glucose meter (FreeStyle Lite Meter kit) As directed lancets (FreeStyle Lancets) As directed check BS QD metformin 500 mg PO BID Tobacco use date assessed: 06/27/23 Dental Screening Dental Screen Date: 08/13/23 Did you have a dental visit in the last 12 months?: Yes Did you have a dental problem in the last 6 months where you did not have access to dental care?: No Was dental information given to patient?: Patient has dentist HPI HPI Comments History of Present Illness Details 38-year-old female past medical history significant for type 2 diabetes mellitus.Hatian/Creole diplomatic interpreter/translator was utilized to complete this appointment. Patient last seen in June to establish care and for new diagnosis diabetes. Hemoglobin A1c 14% at that time, patient is on metformin 500 mg b.i.d.. Patient was previously referred to Endocrinology, Ophthalmology and Podiatry. Patient reports that she ran out of her metformin 2 weeks ago so she has been taking it. Refills sent on this medication. Patient reports has an upcoming appointment with Endocrinology on the of this month. Patient reminded to get previously ordered fasting blood work completed. Pap smear: Reports had Pap smear 2 months ago. Flu shot given in Jun. TDAP: Refused. [facility] Family History Mother No problems noted. Father No problems noted. Daughter No problems noted. Daughter No problems noted. Daughter No problems noted. Brother No problems noted. Brother No problems noted. Brother No problems noted. Brother No problems noted. Brother No problems noted. Brother No problems noted. Social History (Reviewed 08/13/23 @ 08:08 by RONNY Russo Housing: Other Alcohol intake: current Patient Tobacco Use Status: Never used Tobacco e-Cigarette/Vaping Use: Never Used Second Hand Smoke Exposure: No Current occupational status: unemployed Cognitive needs: No Hearing needs: No Vision needs: No Questionnaire PHQ-9 Over the last 2 weeks, how often have you been bothered by any of the following problems? 1. Little interest or pleasure in doing things: several days 2. Feeling down, depressed, or hopeless: several days 3. Trouble falling or staying asleep, or sleeping too much: several days 4. Feeling tired or having little energy: several days 5. Poor appetite or overeating: not at all 6. Feeling bad about yourself - or that you are a failure or have let yourself or your family down: several days 7. Trouble concentrating on things, such as reading the newspaper or watching television: several days 8. Moving or speaking so slowly that other people could have noticed. Or the opposite - being so fidgety or restless that you have been moving around a lot more than usual: not at all 9. Thoughts that you would be better off or of hurting yourself in some way: not at all Total score: 6 Depression Screening Interpretation: Positive Depression Screening Follow-up: Declines treatment Depression Screening Done: Yes Source: Developed by Drs. Eduardo Araujo, Nabeel Nicole and colleagues, with an educational reinaldo from [employer]. Thrive Questionnaire Date Thrive assessed: 06/27/23 AUDIT C Alcohol Use Questionnaire (AUDIT-C) 1. How often do you have a drink containing alcohol?: Never 3. How often do you have six or more drinks on one occasion?: Never Total Score: 0 AMANUEL-7 AMB Questionnaire AMANUEL-7 Date AMANUEL - 7 assessed: 06/27/23 Source: Developed by Ximena Calazda Kurt Kroenke and colleagues, with an educational reinaldo from [employer]. Review of Systems Const Denies chills, Denies fatigue, Denies fever(s) and Denies poor appetite Eyes Denies no additional complaints ENT Reports Normal hearing present Card Denies chest pain, Denies syncope, Denies rapid heart rate and Denies dyspnea Resp Denies cough and Denies dyspnea GI Denies change in stool character, Denies constipation, Denies diarrhea, Denies nausea and Denies vomiting Denies urinary frequency, Denies dysuria and Denies urinary urgency Neuro Reports Normal hearing present, Denies confusion and Denies syncope Psych Denies confusion Endo Denies fatigue Physical exam (Primary Care) Vital Signs: Last Vital Signs Pulse 70 08/13/23 07:37 BP 104/62 08/13/23 07:37 Pulse Ox 98 08/13/23 07:37 Oxygen Delivery Method Room Air 08/13/23 07:37 BMI result Body Mass Index 25.6 Tobacco/Smoking Status: Tobacco use Status Tobacco use date assessed 06/27/23 08/13/23 07:47 Patient Tobacco Use Status Never used Tobacco 08/13/23 07:47 e-Cigarette/Vaping Use Never Used 08/13/23 07:47 PHQ-9: PHQ-9 Score PHQ-9: Total score 6 08/13/23 07:54 Depression Screening Interpretation: Positive Depression Screening Follow-up: Declines treatment Thrive Assessment: Date of Thrive Assessment Date Thrive assessed 06/27/23 08/13/23 07:47 Const General: No confusion Orientation/consciousness: No confusion HENMT Head: Yes normocephalic and Yes atraumatic Ears: external ears normal and TM's normal bilaterally General nose exam: Normal external nose present and Normal nasal mucous membranes and turbinates present Face and sinus: Yes normal facial exam and Yes sinuses nontender Mouth: moist mucous membranes Throat: Yes tonsils normal Eyes Conjunctivae: conjunctivae normal Sclerae: sclerae normal Pupils: Equal, round and reactive pupils present and Pupils normal by confrontation EOM: EOMs intact bilaterally Direct Ophthalmoscopy: normal light reflex Neck Neck: Yes no lymphadenopathy and Yes supple Thyroid: Thyroid normal Chest Chest palpation & inspection: normal inspection of the chest Resp Effort & Inspection: normal respiratory effort Auscultation: clear to auscultation bilaterally, no crackles, no rhonchi and no wheezes Cardio Rate: regular rate Rhythm: regular rhythm Peripheral pulses: radial pulses present and dorsalis pedis present GI Inspection: Yes normal to inspection Palpation (GI): Soft to palpation, nontender and No hepatosplenomegaly present Auscultation: normoactive bowel sounds Skin General skin exam: no rashes or lesions noted Neuro General: No confusion Cranial nerves: Yes Equal, round and reactive pupils present and Yes Normal hearing present Cognition (Neuro): normal cognition Gait exam (Neuro): Normal gait present Motor exam (neuro): 5/5 motor strength present throughout Deep tendon reflexes (DTR's): Right brachioradialis reflex intensity grade: 2+, Left brachioradialis reflex intensity grade: 2+, Right patellar reflex intensity grade: 2+ and Left patellar reflex intensity grade: 2+ Extrem General: No edema Assessment and Plan Assessment & Plan (1) Type 2 diabetes mellitus with hyperglycemia: Code(s): E11.65 - Type 2 diabetes mellitus with hyperglycemia Plan: Continue on metformin 500 mg b.i.d.. Patient previously referred to establish care with photograph printer. Patient educated to decrease the amount of carbohydrate intake such as pasta, bread, rice and potatoes are all sugar in addition to the sweet stuff. Remember that fruits are good but they also have sugar.Hemoglobin A1c goal of less than 6.5% (2) Physical exam, annual: Code(s): Z00.00 - Encounter for general adult medical examination without abnormal findings Plan: Follow-up in 1 year for annual exam. Plan Keep scheduled follow-up with PCP in August or follow-up sooner if needed. Medications: Refilled metformin 500 mg PO BID 60 tabs 3RF E11.65 - Type 2 diabetes mellitus with hyperglycemia Coding Level of Care Code Est Pt Prev Care 18-39y(95155) Diagnoses Type 2 diabetes mellitus with hyperglycemia E11.65 Physical exam, annual Z00.00
== END 2023-08-13 08:22 | disposition home or self-care (01) ==
LOC: HO.HMGH 07:32
PROVIDERS: Visit Provider Nurse Practitioner Family
DX: E11.65 Type 2 diabetes mellitus with hyperglycemia (principal); Z00.00 Encounter for general adult medical examination without abnormal findings
CPT/HCPCS: 99395

== ENCOUNTER 2023-08-13 08:24 | Outpatient (REF) | payer OTHER, SELFPAY ==
[2023-08-13 08:56] LABS: MANUAL DIFF FLAG NO
[2023-08-13 09:36] LABS: Basophils Absolute Auto 0.1 X10*3/uL (0.0-0.2); Basophils Percent Auto 1.3 % (0-2); Eosinophils Absolute Auto 0.1 X10*3/uL (0.0-0.4); Eosinophils Percent Auto 0.9 % (0-4); Hemoglobin 11.9 g/dl (12.0-16.0); Imm Gran Abs Auto 0.01 X10*3/uL (0.00-0.03); Imm Gran Pct Auto 0.2 % (0.0-0.4); Immature Retic Fraction 12.8 % (3.0-15.9); Lymphocytes Absolute Auto 2.3 X10*3/uL (1.2-4.9); Lymphocytes Percent Auto 41.8 % (20-40); Mean Corpuscular Hemoglobin 28.1 pg (27.0-33.0); Mean Corpuscular Volume 82.5 fL (80.0-98.0); Mean Platelet Volume 10.5 fL (9.4-12.3); Monocytes Absolute Auto 0.4 X10*3/uL (0.1-1.2); Monocytes Percent Auto 7.6 % (2-11); Neutrophils Absolute Auto 2.7 x10*3/uL (2.0-8.3); Neutrophils Percent Auto 48.2 % (45-73); Platelet Count 339 X10*3/uL (160-400); Red Blood Count 4.24 X10*6/uL (4.20-5.50); Red Cell Distribution Width 13.2 % (11.0-16.0); Retic HGB Equivalent 31.2 pg (30.0-35.0); Reticulocyte Percent 0.9 % (0.5-1.8); Reticulocytes Absolute 0.039 X10*6/uL (0.026-0.095); White Blood Count 5.5 X10*3/uL (4.8-10.8)
[2023-08-13 09:45] LABS: Appearance Urine Clear; Color Urine Yellow; Glucose Urine UA Negative (Negative); Leukocyte Esterase Urine Negative (Negative); Nitrite Urine Negative (Negative); PH 7.5 (5.0-9.0); Specific Gravity - Urine 1.015 (1.005-1.025); Urine Blood Negative (Negative); Urine Ketones Negative (Negative); Urine Protein Negative (Neg-Trace)
[2023-08-13 09:52] LABS: Bacteria Urine None Seen (None Seen); Hyaline Casts Urine 0-2 /LPF (0-2); RBC Urine 0-2 /HPF (0-2); Squamous Epithelial Cell Urine 0-2 /HPF (0-2); WBC Urine 0-5 /HPF (0-5)
[2023-08-13 10:01] LABS: Cholesterol 170 mg/dL (<200); HDL Cholesterol 31 mg/dL (>40); Iron 68 mcg/dL (30-160); LDL Cholesterol Calculated 123 mg/dL (<100); Percent Iron Saturation 19 % (15-50); Total Iron Binding Capacity 353 mcg/dL (228-428); Triglycerides 84 mg/dL (<150); Unsaturated Iron Binding 285 ug/dL
[2023-08-13 10:16] LABS: Ferritin 10 ng/mL (10-122); Free T4 (Free Thyroxine) 1.05 ng/dL (0.71-1.85); Insulin 6 uU/mL (2-29); Syphilis Screen Nonreactive (Nonreactive); Thyroid Stimulating Hormone 3.97 uIU/mL (0.32-4.0); Vitamin D 25-OH Total 33.8 ng/mL (>30)
[2023-08-13 10:17] LABS: HBS Num1 0.24 mIU/mL (0-7.99); HBc Num1 0.11 S/CO (0.00-0.79); HBsAGNum1 0.37 S/CO (0.00-0.99); Hepatitis B Core Antibody Nonreactive (Nonreactive); Hepatitis B Surface Antigen Negative (Negative); ~HepC Num1 0.22 S/CO (0.00-0.79); ~Hepatitis B Surface Antibody NONREACTIVE (Nonreactive); ~Hepatitis C Antibody Nonreactive (Nonreactive)
[2023-08-13 10:29] LABS: Folate 10.4 ng/mL (> or = 4.0); Vitamin B12 440 pg/mL (200-900)
[2023-08-13 10:35] LABS: Creatinine Urine 86.16 mg/dL; Microalbumin Urine < 5.0 mg/L
[2023-08-15 23:09] LABS: TS Negative Control Passed; TS Panel A 1; TS Panel B 2; TS Positive Control Passed; TSpotTB Negative (Negative)
[2023-08-16 20:09] LABS: Glutamic acid decarboxylase Ab <5 IU/mL (<5)
[2023-08-23 20:33] LABS: Insulin Auto Antibody <0.4 U/mL (<0.4)
== END 2023-08-13 08:25 | disposition home or self-care (01) ==
LOC: HO.LAB 08:24
PROVIDERS: PCP Nurse Practitioner Family; Visit Provider Internal Medicine
DX: E11.65 Type 2 diabetes mellitus with hyperglycemia (principal); E78.00 Pure hypercholesterolemia, unspecified; R79.89 Other specified abnormal findings of blood chemistry
CPT/HCPCS: 36415; 80061; 81001; 82043; 82306; 82570; 82607; 82728; 82746; 83525; 83540; 84439; 84443; 85025; 85045; 86337; 86341; 86481; 86704; 86706; 86780; 86803; 87340

== ENCOUNTER 2023-09-03 08:57 | Outpatient (AMB) | payer OTHER, SELFPAY ==
--- NOTE | 2023-09-03 09:16 | MHC.AMNUTRGE ---
Intake VS Expanded 09/03/23 09:19 09/11/23 10:00 Height 5 ft 5 ft Weight 131 lb 13.383 oz 132 lb BMI 25.7 25.8 Intake Visit Reasons: Dm2-LVM Allergies No Known Allergies Allergy (Verified 08/13/23 07:51) HPI Nutrition Presentation Details Pt presents for initial MNT for T2DM dx in 06/2023. The Pt was referred by Dr. Jin The visit was conducted with assistance of Alejo Vargas french binding folder, french binding folder # [id number] food frequency fruits: 0-1/d, juices 1-2/d starches > 10 servings/d dairy: 0-2x/wk protein foods: fish/poultry/eggs vegetables: daily 2 servings fried foods 1-2 x/wk water : 2-3 c/d Today we discussed balancing meals following healthy plate method. Pt reports she is , unsure how far, and has no OB. [facility] [place] [place] OB office was called and notified of this matter. TYH-Utnddyb-Fm.Jeor Equation Height 5 ft Weight 132 lb Resting Metabolic Rate 1207.60 Calculated Activity Level Mild Activity Calories Needed to Maintain Weight 1660.45 Diagnosis Nutrition problem #1 food nutri know defi As related to (etiology) #1 diagnosis As evidenced by (sign/symptom) #1 no prior educ - nutri rec Most Recent Diabetes Results: Microalb/Creat Ratio TNP 08/13/23 Cholesterol 170 mg/dL (<200) 08/13/23 HDL Cholesterol 31 mg/dL (>40) L 08/13/23 Triglycerides 84 mg/dL (<150) 08/13/23 Creatinine 1.00 mg/dL (0.5-1.4) 06/26/23 Blood Urea Nitrogen 7 mg/dL (9-16) L 06/26/23 Sodium 130 mmol/L (135-145) L 06/26/23 Potassium 4.3 mmol/L (3.3-5.1) 06/26/23 Chloride 99 mmol/L (96-108) 06/26/23 Carbon Dioxide 21 mmol/L (22-29) L 06/26/23 Calcium 9.5 mg/dL (8.4-10.2) 06/26/23 AST 13 U/L (5-31) 06/26/23 ALT 7 U/L (0-31) 06/26/23 Total Protein 6.8 g/dL (6.5-8.0) 06/26/23 Albumin 3.6 g/dL (3.5-5.0) 06/26/23 [facility] Family History Mother No problems noted. Father No problems noted. Daughter No problems noted. Daughter No problems noted. Daughter No problems noted. Brother No problems noted. Brother No problems noted. Brother No problems noted. Brother No problems noted. Brother No problems noted. Brother No problems noted. Social History Housing: Other Alcohol intake: current Patient Tobacco Use Status: Never used Tobacco e-Cigarette/Vaping Use: Never Used Second Hand Smoke Exposure: No Current occupational status: unemployed Cognitive needs: No Hearing needs: No Vision needs: No Assessment & Plan Assessment & Plan (1) Type 2 diabetes mellitus with hyperglycemia: Code(s): E11.65 - Type 2 diabetes mellitus with hyperglycemia Plan: wt: 60kg Est kcal needs as per MSJ: 160-1700 (+ 250/500 if ) (40% carb, 30% protein/fat) Est fluid needs as per 25-30 ml/d: 1800 Est prot per day as per 0.8- 1 g/kg bw: 48- g ( 66 g if in 2nd , 3rd trimester) Recommend fiber intake : 8-10 g per day and gradually increase to 25-28 g per day for women and 35-38 g for men or as tolerated Recommend sodium intake per day : less than 1500 mg less than 2000 mg Educated patient on: ( R = reviewed V = verbalizes understanding N/R = needs review N/A = not applicable Food sources of carbohydrate, adequate serving sizes and its role in various health conditions: R Differences between complex carbohydrates a simple carbohydrates, role of fiber in diet: R Differences between types of fats and role in diet (mono on saturated fat fatty acids, saturated fatty acids, trans fats): NR Food sources of sodium in salt and healthy modifications for heart health in kidney health: NR Vitamins and minerals: R Healthy plate method concept: R V Physical activity: Benefits a precaution: R Hypoglycemia protocol (rule of 15): NR Dietary prevention of Hyperglycemia: R Blood glucose goal for : fasting blood sugar 60-95, 1 hour after eating 60-140, 2 hours after eating 60-120 REVIEWED- Pt to call doctor if blood sugar not at goal for further assessment Patient Instructions: Drink water with meals, NO juices/sugar containing beverages Follow healthy plate method (reducing total carbs to 30-45 g at meals) and 0-15 g as snack Include lean 3 oz of protein foods in each meal keep a food record and bring to appt at next follow up monitor your blood sugar fasting and 2 hours after a meal (goal for pregancy less than 90 in the fasting state and less than 140 , 2 hours after any meal) Take a vitamin call for questions Coding Level of Care Code Nutr Indiv Intake (78866) Diagnoses Type 2 diabetes mellitus with hyperglycemia E11.65 Time Spent (min) 50
[2023-09-03 09:19] VITALS: BMI 25.7
[2023-09-11 10:00] VITALS: BMI 25.8
== END 2023-09-03 10:00 | disposition home or self-care (01) ==
PROVIDERS: Visit Provider Dietitian, Registered
DX: E11.65 Type 2 diabetes mellitus with hyperglycemia (principal)

== ENCOUNTER → 2023-09-03 08:57 | Outpatient (BNVA) | payer OTHER, SELFPAY | PROVIDERS: Visit Provider Dietitian, Registered | DX: E11.65 Type 2 diabetes mellitus with hyperglycemia (principal) | CPT/HCPCS: 97802 ==

== ENCOUNTER 2023-09-26 10:57 | Outpatient (AMB) | payer OTHER, SELFPAY ==
--- NOTE | 2023-09-26 11:17 | A.OFFVIS_ITS ---
Intake VS Expanded 09/26/23 11:21 Weight 136 lb 3.931 oz Intake Visit Reasons: T2DM/ PT needs Creole int/LVM Allergies No Known Allergies Allergy (Verified 08/13/23 07:51) HPI Nutrition Presentation Details Pt presents for MNT follow up for T2DM This visit was conducted with interpreting services Sam language: [phone] Alejo Lucerogilbert Myrna Carrington Pt brought glucometer and for the past 7 d bg average was at 112 mg/d, 14 d bg average at 118, and 30 d bg average at 127 mg /dl. Pt reports she is not , she reports she is interested in getting . She reports understanding basic information regarding foods and its relationship to blood glucose. Today we will review fiber rich foods, and low saturated fat food concepts. physical activity: daily life activities and walking ETOH: denies smoking: denies MVI: no Most Recent Diabetes Results: Microalb/Creat Ratio TNP 08/13/23 Cholesterol 170 mg/dL (<200) 08/13/23 HDL Cholesterol 31 mg/dL (>40) L 08/13/23 Triglycerides 84 mg/dL (<150) 08/13/23 Creatinine 1.00 mg/dL (0.5-1.4) 06/26/23 Blood Urea Nitrogen 7 mg/dL (9-16) L 06/26/23 Sodium 130 mmol/L (135-145) L 06/26/23 Potassium 4.3 mmol/L (3.3-5.1) 06/26/23 Chloride 99 mmol/L (96-108) 06/26/23 Carbon Dioxide 21 mmol/L (22-29) L 06/26/23 Calcium 9.5 mg/dL (8.4-10.2) 06/26/23 AST 13 U/L (5-31) 06/26/23 ALT 7 U/L (0-31) 06/26/23 Total Protein 6.8 g/dL (6.5-8.0) 06/26/23 Albumin 3.6 g/dL (3.5-5.0) 06/26/23 [facility] Family History Mother No problems noted. Father No problems noted. Daughter No problems noted. Daughter No problems noted. Daughter No problems noted. Brother No problems noted. Brother No problems noted. Brother No problems noted. Brother No problems noted. Brother No problems noted. Brother No problems noted. Social History Housing: Other Alcohol intake: current Patient Tobacco Use Status: Never used Tobacco e-Cigarette/Vaping Use: Never Used Second Hand Smoke Exposure: No Current occupational status: unemployed Cognitive needs: No Hearing needs: No Vision needs: No Assessment & Plan Assessment & Plan (1) Type 2 diabetes mellitus with hyperglycemia: Code(s): E11.65 - Type 2 diabetes mellitus with hyperglycemia Plan: wt: 60kg Est kcal needs as per MSJ: 160-1700 (40% carb, 30% protein/fat) Est fluid needs as per 25-30 ml/d: 1800 Est prot per day as per 1 g/kg bw: 48- g Recommend fiber intake : 8-10 g per day and gradually increase to 25-28 g per day for women and 35-38 g for men or as tolerated Recommend sodium intake per day : less than 2000 mg Educated patient on: ( R = reviewed V = verbalizes understanding N/R = needs review N/A = not applicable * Food sources of carbohydrate, adequate serving sizes and its role in various health conditions: R , V * Differences between complex carbohydrates a simple carbohydrates, role of fiber in diet: R * Differences between types of fats and role in diet (mono on saturated fat fatty acids, saturated fatty acids, trans fats): R * Food sources of sodium in salt and healthy modifications for heart health in kidney health: R * Vitamins and minerals: R * Healthy plate method concept: R V * Physical activity: Benefits a precaution: R * Dietary prevention of Hyperglycemia: R , V * Patient Instructions: Continue to have 3 meals per day following healthy plate method Choose lean protein source sof foods at meals Drink water or milk with meals or snack Coding Level of Care Code Nutr Indiv Subseq (90723) Diagnoses Type 2 diabetes mellitus with hyperglycemia E11.65 Time Spent (min) 30
== END 2023-09-26 12:02 | disposition home or self-care (01) ==
PROVIDERS: Visit Provider Dietitian, Registered
DX: E11.65 Type 2 diabetes mellitus with hyperglycemia (principal)

== ENCOUNTER → 2023-09-26 10:57 | Outpatient (BNVA) | payer OTHER, SELFPAY | PROVIDERS: Visit Provider Dietitian, Registered | DX: E11.65 Type 2 diabetes mellitus with hyperglycemia (principal) | CPT/HCPCS: 97803 ==

== ENCOUNTER 2023-11-25 11:06 | Outpatient (AMB) | payer OTHER, SELFPAY ==
[2023-11-25 11:16] VITALS: BMI 26.5
--- NOTE | 2023-11-25 11:16 | A.OFFVIS_ITS ---
Intake VS Expanded 11/25/23 11:16 Height 5 ft Weight 135 lb 12.876 oz BMI 26.5 Intake Visit Reasons: T2DML/LVM Allergies No Known Allergies Allergy (Verified 08/13/23 07:51) HPI Nutrition Presentation Details Pt presents for MNT f/u for T2DM. Visit conducted via [facility] interpreting services: [employer] interpreter # [id number] Pt brought glucometer and 14 d bg at 124 mg/dl , Pt monitoring in the fasting state only. Pt reports the bg at 183 is a family member's bg , not hers. - Pt was advised not to share glucometer and safety precautions. Pt reports having 3 meals/day including milk at least 2 times/day following healthy plate method has 16 oz of water per day plus tea , milk (about 5-7 cups of fluid per day) fish 1x/wk fried foods 1-2 x/wk Today we will review low fat food choices and reinforcing physical activity Most Recent Diabetes Results: Microalb/Creat Ratio TNP 08/13/23 Cholesterol 170 mg/dL (<200) 08/13/23 HDL Cholesterol 31 mg/dL (>40) L 08/13/23 Triglycerides 84 mg/dL (<150) 08/13/23 Creatinine 1.00 mg/dL (0.5-1.4) 06/26/23 Blood Urea Nitrogen 7 mg/dL (9-16) L 06/26/23 Sodium 130 mmol/L (135-145) L 06/26/23 Potassium 4.3 mmol/L (3.3-5.1) 06/26/23 Chloride 99 mmol/L (96-108) 06/26/23 Carbon Dioxide 21 mmol/L (22-29) L 06/26/23 Calcium 9.5 mg/dL (8.4-10.2) 06/26/23 AST 13 U/L (5-31) 06/26/23 ALT 7 U/L (0-31) 06/26/23 Total Protein 6.8 g/dL (6.5-8.0) 06/26/23 Albumin 3.6 g/dL (3.5-5.0) 06/26/23 [facility] Family History Mother No problems noted. Father No problems noted. Daughter No problems noted. Daughter No problems noted. Daughter No problems noted. Brother No problems noted. Brother No problems noted. Brother No problems noted. Brother No problems noted. Brother No problems noted. Brother No problems noted. Social History Housing: Other Alcohol intake: current Patient Tobacco Use Status: Never used Tobacco e-Cigarette/Vaping Use: Never Used Second Hand Smoke Exposure: No Current occupational status: unemployed Cognitive needs: No Hearing needs: No Vision needs: No Assessment & Plan Assessment & Plan (1) Type 2 diabetes mellitus with hyperglycemia: Code(s): E11.65 - Type 2 diabetes mellitus with hyperglycemia Plan: wt: 60kg , 62 kg( 11/2023) Est kcal needs as per MSJ: 160-1700 (40% carb, 30% protein/fat) Est fluid needs as per 25-30 ml/d: 1800 Est prot per day as per 1 g/kg bw: 60-62 g Recommend fiber intake : 8-10 g per day and gradually increase to 25-28 g per day for women and 35-38 g for men or as tolerated Recommend sodium intake per day : less than 2000 mg Educated patient on: ( R = reviewed V = verbalizes understanding N/R = needs review N/A = not applicable * Food sources of carbohydrate, adequate serving sizes and its role in various health conditions: R , V * Differences between complex carbohydrates a simple carbohydrates, role of fiber in diet: R * Differences between types of fats and role in diet (mono on saturated fat fatty acids, saturated fatty acids, trans fats): R, V * Food sources of sodium in salt and healthy modifications for heart health in kidney health: R * Vitamins and minerals: R * Healthy plate method concept: R V * Physical activity: Benefits a precaution: R , V * Dietary prevention of Hyperglycemia: R , V * Patient Instructions: Restart monitoring your blood sugar fasting and 2 hours after a meal Keep working on following healthy plate method, Keep hydrated by having water withe meals, decaf tea keep physically active 30 minutes/day (walking/dancing/marching in place Reduce fat (in sauces, fried foods, breaded fried items, starchy fried foods Coding Level of Care Code Nutr Indiv Subseq (50059) Diagnoses Type 2 diabetes mellitus with hyperglycemia E11.65 Time Spent (min) 55
== END 2023-11-25 11:57 | disposition home or self-care (01) ==
PROVIDERS: Visit Provider Dietitian, Registered
DX: E11.65 Type 2 diabetes mellitus with hyperglycemia (principal)

== ENCOUNTER → 2023-11-25 11:06 | Outpatient (BNVA) | payer OTHER, SELFPAY | PROVIDERS: Visit Provider Dietitian, Registered | DX: E11.65 Type 2 diabetes mellitus with hyperglycemia (principal) | CPT/HCPCS: 97803 ==

== ENCOUNTER 2023-12-27 12:13 | Outpatient (AMB) | payer OTHER, SELFPAY ==
--- NOTE | 2023-12-27 12:31 | MHC.PC.OV ---
Vital Signs 12/27/23 12:32 Height 5 ft Weight 140 lb BMI 27.3 BP 94/68 Blood Pressure Location Lt brachial Position Sitting Pulse 77 Pulse Source Pulse Oximeter Pulse Oximetry (%) 100 Oxygen Delivery Method Room Air Intake Visit Reasons: Establish Care Neuro Ophthalmologist Required: Yes Neuro Ophthalmologist Language: Togolese Creole Allergies No Known Allergies Allergy (Verified 12/27/23 12:41) Tobacco use date assessed: 12/27/23 Dental Screening Dental Screen Date: 12/27/23 Did you have a dental visit in the last 12 months?: No Did you have a dental problem in the last 6 months where you did not have access to dental care?: No HPI Establish Care HPI Details 38-year-old overweight female with an uncontrolled diabetes mellitus hypercholesterolemia coming in for follow-up. Last seen in July 2023. Patient was advised follow-up with endocrinology. [phone] interpreter. PAtient states has ran out of med for a long time 6 months already [facility] Family History Mother No problems noted. Father No problems noted. Daughter No problems noted. Daughter No problems noted. Daughter No problems noted. Brother No problems noted. Brother No problems noted. Brother No problems noted. Brother No problems noted. Brother No problems noted. Brother No problems noted. Social History Housing: Other Alcohol intake: current Patient Tobacco Use Status: Never used Tobacco e-Cigarette/Vaping Use: Never Used Second Hand Smoke Exposure: No Current occupational status: unemployed Cognitive needs: No Hearing needs: No Vision needs: No Questionnaire PHQ-9 Over the last 2 weeks, how often have you been bothered by any of the following problems? 1. Little interest or pleasure in doing things: not at all 2. Feeling down, depressed, or hopeless: more than half the days (due to family passing ) 3. Trouble falling or staying asleep, or sleeping too much: not at all 4. Feeling tired or having little energy: not at all 5. Poor appetite or overeating: not at all 6. Feeling bad about yourself - or that you are a failure or have let yourself or your family down: not at all 7. Trouble concentrating on things, such as reading the newspaper or watching television: not at all 8. Moving or speaking so slowly that other people could have noticed. Or the opposite - being so fidgety or restless that you have been moving around a lot more than usual: not at all 9. Thoughts that you would be better off or of hurting yourself in some way: not at all Total score: 2 Depression Screening Interpretation: Negative Depression Screening Done: Yes 16604 - PHQ-9 Billing: Yes Source: Developed by Drs. Eduardo Araujo, Ximena Chavez, Nabeel Goode and colleagues, with an educational reinaldo from [employer]. Thrive Questionnaire Date Thrive assessed: 12/27/23 I am a: Patient What is your living situation today?: I have a steady place to live Within the past 12 months, did the food you bought not last and you didn't have the money to get more?: Never true Within the past 12 months, did you worry whether your food would run out before you got money to buy more?: Never true Do you have trouble paying for medicines?: No Do you have trouble getting transportation to medical appointments?: No Do you have trouble paying your heating and electricity bill?: No Do you have trouble taking care of your child, family member or friend?: No Do you have trouble with day-to-day activities such as bathing, preparing meals, shopping, managing finances, etc.?: No Are you currently unemployed and looking for a job?: No Are you interested in more education?: No Please select the resources that you would like help with: None Currently or been in a relationship where the following occur: no concerns reported THRIVE Score: 0 AUDIT C Alcohol Use Questionnaire (AUDIT-C) 1. How often do you have a drink containing alcohol?: Never 3. How often do you have six or more drinks on one occasion?: Never Total Score: 0 AMANUEL-7 AMB Questionnaire AMANUEL-7 Date AMANUEL - 7 assessed: 12/27/23 (due to family passing ) Feeling nervous, anxious, or on edge: 0 = Not at all Not being able to stop or control worryin = Several days Worrying too much about different things: 0 = Not at all Trouble relaxin = Not at all Being so restless that it is hard to sit still: 0 = Not at all Becoming easily annoyed or irritable: 0 = Not at all Feeling afraid as if something awful might happen: 0 = Not at all Total AMANUEL-7 score (0-4 normal; 5-9 mild; 10-14 moderate; 15-21 severe): 1 Source: Developed by Drs. Eduardo Araujo, Ximena Chavez, Nabeel Goode and colleagues, with an educational reinaldo from [employer]. AMANUEL-7 Assessment Billing AMANUEL-7 Assessment Tool: AMANUEL-7 Assessment 18857 Physical exam (Primary Care) Vital Signs: Oxygen Delivery Method Room Air 12/27/23 12:32 BMI result Body Mass Index 27.3 Tobacco/Smoking Status: Tobacco use Status Tobacco use date assessed 12/27/23 12/27/23 12:38 Patient Tobacco Use Status Never used Tobacco 12/27/23 12:38 e-Cigarette/Vaping Use Never Used 12/27/23 12:38 Depression Screening Interpretation: Negative Thrive Assessment: Date of Thrive Assessment Date Thrive assessed 06/27/23 12/27/23 12:38 Currently or been in a relationship where the following occur: no concerns reported Const General: alert; No acute distress Eyes Conjunctivae: conjunctivae normal Resp Auscultation: clear to auscultation bilaterally Cardio Rate: regular rate Rhythm: regular rhythm GI Inspection: Yes normal to inspection Extrem General: Yes normal to inspection and No edema Results AMB Hemoglobin A1c AMB Hemoglobin A1c 6.5 % Last Edit by CASIE Torres on 12/27/23 12:54 Assessment and Plan Assessment & Plan (1) Type 2 diabetes mellitus with hyperglycemia: Code(s): E11.65 - Type 2 diabetes mellitus with hyperglycemia Plan: Decrease the amount of carbohydrate intake, pasta, bread, rice and potatoes are all sugar and that is aside from all the sweet stuff, remember that fruits are good but they are Sweet also. Hemoglobin A1c goal of less than 6.5. PAtent has not taken med. Reminded about eye doctor declined pneumonia shot right now (2) Hypercholesterolemia: Code(s): E78.00 - Pure hypercholesterolemia, unspecified Plan: Avoid fried foods, chicken skin, eggs, butter margarine, pastries and meat. Be it pork or beef they have a lot of cholesterol LDL goal of less than 100 and triglyceride of less than 150. Advised to retest (3) Overweight (BMI 25.0-29.9): Code(s): E66.3 - Overweight Plan: Diet and exercise Orders: Orders AMB Hemoglobin A1c Today E11.65 - Type 2 diabetes mellitus with hyperglycemia Lipid Panel Today E11.65 - Type 2 diabetes mellitus with hyperglycemia, E78.00 - Pure hypercholesterolemia, unspecified Comprehensive Met. Panel Today E11.65 - Type 2 diabetes mellitus with hyperglycemia Complete Blood Count Auto Diff Today E11.65 - Type 2 diabetes mellitus with hyperglycemia Medications: Discontinued metformin Discontinued Reason: Patient Refused 500 mg PO BID 60 tabs 3RF E11.65 - Type 2 diabetes mellitus with hyperglycemia Coding Level of Care Code Est Pt Level 4 (54702) Diagnoses Type 2 diabetes mellitus with hyperglycemia E11.65 Hypercholesterolemia E78.00 Overweight (BMI 25.0-29.9) E66.3 Additional Codes AMANUEL-7 Assessment Billing - AMANUEL-7 Assessment Tool: AMANUEL-7 Assessment 19022 ([id number])
[2023-12-27 12:32] VITALS: BP 94/68; PULSE 77; O2SAT 100; BMI 27.3
== END 2023-12-27 13:16 | disposition home or self-care (01) ==
PROVIDERS: Visit Provider Internal Medicine
DX: E11.65 Type 2 diabetes mellitus with hyperglycemia (principal); E78.00 Pure hypercholesterolemia, unspecified; E66.3 Overweight
CPT/HCPCS: 83036; 99214

== ENCOUNTER 2024-02-24 11:34 | Outpatient (AMB) | payer OTHER, SELFPAY ==
--- NOTE | 2024-02-24 12:10 | A.OFFVIS_ITS ---
VS Expanded 02/24/24 12:13 Height 5 ft Weight 146 lb 9.718 oz BMI 28.6 Intake Visit Reasons: T2DM Allergies No Known Allergies Allergy (Verified 12/27/23 12:41) Nutrition Presentation Details: Pt presents for MNT f/u for t2dm. Visit was completed via Interpreting services: Alejo Vargas # [id number] Pt brought BG glucometer and 14 d at 124 mg/dl and 7d at 127 mg/dl Pt reports doing well, reports concerns of weight gain, has questions regarding medication for weight loss. Pt was advised to discuss medications with MD. Pt was highly encouraged to work on diet modification for weight loss BS Monitoring Most Recent Diabetes Results: Microalb/Creat Ratio TNP 08/13/23 Cholesterol 170 mg/dL (<200) 08/13/23 HDL Cholesterol 31 mg/dL (>40) L 08/13/23 Triglycerides 84 mg/dL (<150) 08/13/23 PFSH Family History Mother No problems noted. Father No problems noted. Daughter No problems noted. Daughter No problems noted. Daughter No problems noted. Brother No problems noted. Brother No problems noted. Brother No problems noted. Brother No problems noted. Brother No problems noted. Brother No problems noted. Social History Housing: Other Alcohol intake: current Patient Tobacco Use Status: Never used Tobacco e-Cigarette/Vaping Use: Never Used Second Hand Smoke Exposure: No Current occupational status: unemployed Cognitive needs: No Hearing needs: No Vision needs: No Assessment & Plan Assessment & Plan (1) Type 2 diabetes mellitus with hyperglycemia: Code(s): E11.65 - Type 2 diabetes mellitus with hyperglycemia Category: Medical Plan: wt: 60kg , 62 kg( 11/2023) 67 kg (02/2024) Est kcal needs as per MSJ: 160-1700 (40% carb, 30% protein/fat) Est fluid needs as per 25-30 ml/d: 1800 Est prot per day as per 1 g/kg bw: 60-62 g Recommend fiber intake : 8-10 g per day and gradually increase to 25-28 g per day for women and 35-38 g for men or as tolerated Recommend sodium intake per day : less than 2000 mg Educated patient on: ( R = reviewed V = verbalizes understanding N/R = needs review N/A = not applicable * Food sources of carbohydrate, adequate serving sizes and its role in various health conditions: R , V * Differences between complex carbohydrates a simple carbohydrates, role of fiber in diet: R * Differences between types of fats and role in diet (mono on saturated fat fatty acids, saturated fatty acids, trans fats): R, V * Food sources of sodium in salt and healthy modifications for heart health in kidney health: R * Vitamins and minerals: R * Healthy plate method concept: R V * Physical activity: Benefits a precaution: R , V * Dietary prevention of Hyperglycemia: R , V * Patient Instructions: Reduce on portion sizes and amount of fat in the foods to promote weight loss Remove skins, cook with less fat (oils/butter, and fat in general) drink water with meals in place of sugar containing beverages Keep active, at least 30 minutes walk daily Coding Level of Care Code Nutr Indiv Subseq (44226) Diagnoses Type 2 diabetes mellitus with hyperglycemia E11.65 Time Spent (min) 30
[2024-02-24 12:13] VITALS: BMI 28.6
== END 2024-02-24 12:08 | disposition home or self-care (01) ==
PROVIDERS: Visit Provider Dietitian, Registered
DX: E11.65 Type 2 diabetes mellitus with hyperglycemia (principal)

== ENCOUNTER → 2024-02-24 11:34 | Outpatient (BNVA) | payer OTHER, SELFPAY | PROVIDERS: Visit Provider Dietitian, Registered | DX: E11.65 Type 2 diabetes mellitus with hyperglycemia (principal); Z71.3 Dietary counseling and surveillance | CPT/HCPCS: 97803 ==

== ENCOUNTER 2024-05-14 15:22 | Outpatient (AMB) | payer OTHER, SELFPAY ==
[2024-05-14 15:25] VITALS: BP 104/68; PULSE 88; O2SAT 99; BMI 27.5
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
== END 2024-05-14 16:30 | disposition home or self-care (01) ==
PROVIDERS: Visit Provider Internal Medicine
DX: E11.65 Type 2 diabetes mellitus with hyperglycemia (principal); E66.3 Overweight; E78.00 Pure hypercholesterolemia, unspecified
CPT/HCPCS: 83036; 99214

== ENCOUNTER 2024-06-02 07:58 | Outpatient (REF) | payer OTHER, SELFPAY ==
[2024-06-02 08:12] LABS: MANUAL DIFF FLAG NO
[2024-06-02 08:38] LABS: Basophils Absolute Auto 0.1 X10*3/uL (0.0-0.2); Basophils Percent Auto 1.2 % (0-2); Eosinophils Absolute Auto 0.1 X10*3/uL (0.0-0.4); Eosinophils Percent Auto 1.2 % (0-4); Hematocrit 29.8 % (37.0-47.0); Hemoglobin 9.9 g/dl (12.0-16.0); Imm Gran Abs Auto 0.01 X10*3/uL (0.00-0.03); Imm Gran Pct Auto 0.2 % (0.0-0.4); Immature Retic Fraction 22.4 % (3.0-15.9); Lymphocytes Absolute Auto 2.8 X10*3/uL (1.2-4.9); Lymphocytes Percent Auto 47.1 % (20-40); Mean Corpuscular HGB Conc 33.2 g/dl (31.0-35.0); Mean Corpuscular Hemoglobin 23.4 pg (27.0-33.0); Mean Corpuscular Volume 70.4 fL (80.0-98.0); Mean Platelet Volume 10.2 fL (9.4-12.3); Monocytes Absolute Auto 0.4 X10*3/uL (0.1-1.2); Monocytes Percent Auto 7.2 % (2-11); Neutrophils Absolute Auto 2.6 x10*3/uL (2.0-8.3); Neutrophils Percent Auto 43.1 % (45-73); Platelet Count 361 X10*3/uL (160-400); Red Blood Count 4.23 X10*6/uL (4.20-5.50); Red Cell Distribution Width 17.2 % (11.0-16.0); Retic HGB Equivalent 24.6 pg (30.0-35.0); Reticulocyte Percent 1.4 % (0.5-1.8); White Blood Count 5.9 X10*3/uL (4.8-10.8)
[2024-06-02 09:32] LABS: Alanine Aminotransferase 10 U/L (0-31); Albumin Level 4.1 g/dL (3.5-5.0); Alkaline Phosphatase 54 U/L (39-117); Anion Gap 11 (12-20); Aspartate Amino Transferase 11 U/L (5-31); Bilirubin Total 0.6 mg/dL (0.0-1.0); Blood Urea Nitrogen 14 mg/dL (9-16); Calcium 9.5 mg/dL (8.4-10.2); Carbon Dioxide 26 mmol/L (22-29); Chloride 106 mmol/L (96-108); Cholesterol 169 mg/dL (<200); Estimated Glomerular Filt Rate > 60; Glucose Random 101 mg/dL (60-115); HDL Cholesterol 39 mg/dL (>40); Iron 24 mcg/dL (30-160); LDL Cholesterol Calculated 115 mg/dL (<100); Percent Iron Saturation 6 % (15-50); Potassium 3.9 mmol/L (3.3-5.1); Sodium 139 mmol/L (135-145); Total Iron Binding Capacity 386 mcg/dL (228-428); Total Protein 7.4 g/dL (6.5-8.0); Triglycerides 76 mg/dL (<150); Unsaturated Iron Binding 362 ug/dL
[2024-06-02 09:47] LABS: Ferritin 5 ng/mL (10-122); Free T4 (Free Thyroxine) 0.85 ng/dL (0.71-1.85); Thyroid Stimulating Hormone 3.13 uIU/mL (0.32-4.0)
[2024-06-02 09:54] LABS: Folate 6.2 ng/mL (> or = 4.0); Vitamin B12 427 pg/mL (200-900)
[2024-06-02 10:27] LABS: Creatinine Urine 59.94 mg/dL; Microalbumin Urine < 5.0 mg/L
== END 2024-06-02 07:59 | disposition home or self-care (01) ==
LOC: HO.LAB 07:58
PROVIDERS: PCP Internal Medicine; Visit Provider Internal Medicine
DX: E11.65 Type 2 diabetes mellitus with hyperglycemia (principal); E78.00 Pure hypercholesterolemia, unspecified
CPT/HCPCS: 36415; 80053; 80061; 82043; 82570; 82607; 82728; 82746; 83540; 84439; 84443; 85025; 85045

== ENCOUNTER 2024-06-29 15:06 | Outpatient (AMB) | payer OTHER, SELFPAY ==
--- NOTE | 2024-06-29 15:27 | A.OFFVIS_ITS ---
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 Patient noted to be visibly unwell coughing eyes blurry stated to medical representative that she had a fever. It was clear that the patient was ill with the communicable respiratory disease however contact lens edge buffer services were necessary to communicate this to the patient the patient initially said she had no DrCedrick, though she then said that Dr. Jin was her doctor for her diabetes. Since we are currently today in the [facility] building, the patient was recommended to try to see if she can be seen at the [facility] on the 1st floor of this building as she is visibly quite unwell with an upper respiratory infection. Patient did have a mask on and was encouraged to replace it in she took it off. [facility] Family History Mother No problems noted. Father No problems noted. Daughter No problems noted. Daughter No problems noted. Daughter No problems noted. Brother No problems noted. Brother No problems noted. Brother No problems noted. Brother No problems noted. Brother No problems noted. Brother No problems noted. Social History Housing: Other Alcohol intake: current Patient Tobacco Use Status: Never used Tobacco Tobacco use type: Cigarette e-Cigarette/Vaping Use: Never Used Second Hand Smoke Exposure: No Current occupational status: unemployed Cognitive needs: No Hearing needs: No Vision needs: No Assessment & Plan Assessment & Plan (1) Upper respiratory infection: Comment: Patient presented late to agricultural equipment sales engineer appointment, patient is coughing with productive cough, and eyes very blurry, stated she had a fever, referred down to urgent or same day care to be seen and assessed. agricultural equipment sales engineer appointment to be rescheduled when patient is well Code(s): J06.9 - Acute upper respiratory infection, unspecified Category: Medical Plan Patient arrived 40 minutes late for agricultural equipment sales engineer appointment. Patient noted to be visibly unwell coughing eyes blurry stated to medical representative that she had a fever. It was clear that the patient was ill with the communicable respiratory disease however contact lens edge buffer services were necessary to communicate this to the patient the patient initially said she had no DrCedrick, though she then said that Dr. Jin was her doctor for her diabetes. Since we are currently today in the [facility] building, the patient was recommended to try to see if she can be seen at the [facility]-in [facility] Center on the 1st floor of this building as she is visibly quite unwell with an upper respiratory infection. Patient did have a mask on and was encouraged to replace it in she took it off. The patient will be rescheduled for agricultural equipment sales engineer appointment in the somewhat near future when she is well. Coding Level of Care Code New Pt Level 2 (99004) Left Without Being Seen Diagnoses Upper respiratory infection J06.9 Time Spent (min) 10 Comment Patient is ill today, needs to be rescheduled.
== END 2024-06-29 15:31 | disposition home or self-care (01) ==
LOC: HO.HWSM 15:06
PROVIDERS: PCP Internal Medicine; Visit Provider Advanced Practice Midwife
DX: J06.9 Acute upper respiratory infection, unspecified (principal)
CPT/HCPCS: 99202

== ENCOUNTER → 2024-06-29 15:06 | Outpatient (BNVA) | payer OTHER, SELFPAY | PROVIDERS: PCP Internal Medicine; Visit Provider Advanced Practice Midwife | DX: J06.9 Acute upper respiratory infection, unspecified (principal) | CPT/HCPCS: 99202 ==

== ENCOUNTER 2024-07-03 08:00 | Emergency (ER) | payer OTHER, SELFPAY ==
[2024-07-03 08:02] VITALS: BP 105/72; PULSE 120; RESP 18; TEMP 37; O2SAT 99; BMI 45.1
[2024-07-03 09:30] LABS: Influenza A PCR NEGATIVE (Negative); Influenza B PCR NEGATIVE (Negative); Resp Syncy Virus RNA Qual PCR NEGATIVE (Negative); SARS COV2 PCR INHOUSE NEGATIVE (Negative)
--- NOTE | 2024-07-03 10:20 | ED.GENADULT ---
HPI - General Adult General Chief complaint: General Medical Stated complaint: Flu Time Seen by Provider: 07/03/24 08:11 Source: patient Mode of arrival: ambulatory Limitations: no limitations History of Present Illness ED Provider: Dr. Delacruz HPI narrative: History obtained with Creole collar separator. Patient with one week of chills, fever, headache, cough. States she has not traveled, states that no one is sick at home, states she is a diabetic. Onset (ago): week(s) Related Data Previous Rx's ?Medication ?Instructions ?Recorded blood sugar diagnostic (FreeStyle #300 ea 06/27/23 Lite Strips) blood-glucose meter (FreeStyle #1 ea 06/27/23 Lite Meter kit) lancets 28 gauge (FreeStyle #300 ea 05/14/24 Lancets) ascorbate calcium (vitamin C) 500 500 mg PO DAILY #90 tabs 06/02/24 mg tablet ferrous sulfate 325 mg (65 mg 325 mg PO DAILY #90 tabs 06/02/24 iron) tablet (Feosol) acetaminophen 500 mg capsule 1,000 mg (2 x 500 mg) PO Q6H PRN 07/03/24 fever or pain #30 caps sewyfopxozciw-UY-uivznkyxblr 5 10 ml PO Q4H PRN cough #237 mL 07/03/24 mg-10 mg-100 mg/5 mL oral liquid Allergies Allergy/AdvReac Type Severity Reaction Status Date / Time No Known Allergies Allergy Verified 07/03/24 08:07 Review of Systems Review of Systems: Yes all other systems are reviewed and are negative Neurologic: Denies Sensory deficit (Neuro) [facility] Family History Family History Mother No problems noted. Father No problems noted. Daughter No problems noted. Daughter No problems noted. Daughter No problems noted. Brother No problems noted. Brother No problems noted. Brother No problems noted. Brother No problems noted. Brother No problems noted. Brother No problems noted. Social History Social History Housing: Other Alcohol intake: current Patient Tobacco Use Status: Never used Tobacco Tobacco use type: Cigarette e-Cigarette/Vaping Use: Never Used Second Hand Smoke Exposure: No Advance Directives: No Advance Directives Information Provided: Yes Current occupational status: unemployed Cognitive needs: No Hearing needs: No Vision needs: No Physical Exam ED Vital Signs: Vital Signs - 24 hr 07/03/24 08:02 07/03/24 10:30 Temperature 98.6 F Pulse Rate 120 H 91 Respiratory Rate 18 17 Blood Pressure 105/72 114/80 Pulse Oximetry 99 98 Oxygen Delivery Method Room Air Room Air BMI result Body Mass Index 45.1 Const General: healthy appearing Nutritional Appearance: average body habitus Orientation/consciousness: oriented to person and patient oriented x3 Limitations: no limitations HENMT Head: Yes normal to inspection Ears: external ears normal General nose exam: Normal external nose present Mouth: Normal oral and palatal mucosa present and oropharynx normal Throat: Yes posterior oropharynx normal Eyes General: appearance normal, both eyes and all related structures Neck Neck: Yes normal visual inspection Chest Chest palpation & inspection: normal inspection of the chest Resp Auscultation: clear to auscultation bilaterally Cardio Jugular venous distension: no JVD Rate: regular rate Rhythm: regular rhythm Heart sounds: S1 normal heart sound present and S2 normal heart sound present GI Inspection: Yes normal to inspection Palpation (GI): Soft to palpation, nontender and No hepatosplenomegaly present Auscultation: normal bowel sounds General: Yes no CVA tenderness Back/Spine/Pelvis Back: no CVA tenderness Skin General skin exam: no rashes or lesions noted Neuro General: oriented to person and patient oriented x3 Cranial nerves: Yes CN's II-XII intact bilaterally Motor exam (neuro): 5/5 motor strength present throughout Sensory Exam: No Sensory deficit (Neuro) Extrem General: Yes normal to inspection Psych Appearance: grossly normal Course Reevaluation(s) Reevaluation #1: vitals improved, glucose 11 will dc on tylenol and robitussin Time: 10:30 Medical Decision Making Differential Diagnosis Differential Diagnoses: The differential diagnosis associated with the presentation includes (flu, COVID, RSV, upper respiratory infection) Lab Data Labs: Lab Results 07/03/24 07/03/24 Range/Units 08:15 10:22 POC Glucose 111 (60-115) mg/dL Influenza Type A (PCR) NEGATIVE (Negative) Influenza Type B (PCR) NEGATIVE (Negative) RSV RNA Qual (PCR) NEGATIVE (Negative) SARS-CoV-2 RNA (RT-PCR) NEGATIVE (Negative) Tests considered The following testing was considered but not selected: CXR considered but lungs clear, and pulse ox normal Prescription Management I considered prescription management with: Antibiotic (no evidence of pneumonia) Chronic Conditions Patient?s care impacted by: Diabetes Discharge Plan Discharge Clinical Impression: Upper respiratory infection Patient Disposition: Home, Self-Care Instructions: Upper Respiratory Infection (ED), Viral Syndrome (ED) Prescriptions: New acetaminophen 500 mg capsule 1,000 mg PO Q6H PRN (Reason: fever or pain) Qty: 30 0RF jxrdlddcmuqtu-RZ-webblaqjhgi 5-10-100 mg/5 mL liquid 10 ml PO Q4H PRN (Reason: cough) Qty: 237 0RF No Action ferrous sulfate [Feosol] 325 mg (65 mg iron) tablet 325 mg PO DAILY Qty: 90 2RF ascorbate calcium (vitamin C) 500 mg tablet 500 mg PO DAILY Qty: 90 1RF (DME) blood-glucose meter [FreeStyle Lite Meter] Kit See Rx Instructions .ROUTE .MEDSUPPLY Qty: 1 0RF Rx Instructions: As directed (DME) FreeStyle Lite Strips Strip See Rx Instructions .ROUTE .MEDSUPPLY Qty: 300 3RF Rx Instructions: As directed check the BS TID (DME) lancets [FreeStyle Lancets] 28 gauge misc See Rx Instructions .ROUTE .MEDSUPPLY Qty: 300 3RF Rx Instructions: As directed check BS QD Referrals: Po,Carlita Perez MD [Primary Care Provider] - 1 week Print Language: Michelle Vargas
[2024-07-03 10:26] LABS: Glucose, Whole Blood 111 mg/dL (60-115)
[2024-07-03 10:30] VITALS: BP 114/80; PULSE 91; RESP 17; O2SAT 98
[2024-07-03] MEDS: guaiFENesin 200 MG/10 ML 10 ML LIQUID PO (10:38)
[2024-07-03] MEDS: Acetaminophen 325 MG TABLET 975 MG PO (10:38)
[2024-07-03 10:51] VITALS: BP 114/80; PULSE 91; RESP 17; TEMP 37; O2SAT 98
== END 2024-07-03 10:52 | disposition home or self-care (01) ==
PROVIDERS: Physician Assistant; Emergency Provider Emergency Medicine; PCP Internal Medicine
DX: J06.9 Acute upper respiratory infection, unspecified (principal); R05.9 Cough, unspecified; R51.9 Headache, unspecified; Z03.818 Encounter for observation for suspected exposure to other biological agents ruled out; E11.9 Type 2 diabetes mellitus without complications; E78.00 Pure hypercholesterolemia, unspecified; Z79.899 Other long term (current) drug therapy
CPT/HCPCS: 0241U; 82947; 99283; 99284

== ENCOUNTER 2024-08-15 08:46 | Outpatient (REF) | payer OTHER, SELFPAY ==
[2024-08-15 09:54] LABS: Creatinine Urine 52.63 mg/dL
== END 2024-08-15 08:47 | disposition home or self-care (01) ==
LOC: HO.LAB 08:46
PROVIDERS: PCP Internal Medicine; Visit Provider Internal Medicine
DX: E11.65 Type 2 diabetes mellitus with hyperglycemia (principal)
CPT/HCPCS: 82570

== ENCOUNTER 2024-08-17 15:51 | Outpatient (AMB) | payer OTHER, SELFPAY ==
[2024-08-17 15:52] VITALS: BP 108/72; PULSE 70; O2SAT 100
--- NOTE | 2024-08-17 15:52 | MHC.PC.OV ---
Vital Signs 08/17/24 15:52 Weight 153 lb BP 108/72 Blood Pressure Location Lt brachial Position Sitting Pulse 70 Pulse Source Pulse Oximeter Pulse Oximetry (%) 100 Oxygen Delivery Method Room Air Intake Visit Reasons: ANNUAL Still Operator Helper Required: Yes Still Operator Helper Language: [place] Creole Allergies No Known Allergies Allergy (Verified 08/17/24 16:18) Medication List - Last Reconciled 08/17/24 by Nuris Frias PA-C acetaminophen 1,000 mg (2 x 500 mg) PO Q6H PRN ascorbate calcium (vitamin C) 500 mg PO DAILY blood sugar diagnostic (FreeStyle Lite Strips) As directed check the BS TID blood-glucose meter (FreeStyle Lite Meter kit) As directed ferrous sulfate (Feosol) 325 mg PO DAILY lancets (FreeStyle Lancets) As directed check BS QD Tobacco use date assessed: 12/27/23 Dental Screening Dental Screen Date: 08/17/24 Did you have a dental visit in the last 12 months?: Yes Did you have a dental problem in the last 6 months where you did not have access to dental care?: No Was dental information given to patient?: Patient has dentist HPI ANNUAL HPI Details 39-year-old female with past medical history of diabetes mellitus, hypercholesterolemia last seen by Dr. Jin April 2024 coming in for annual exam. 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 Patient has been following with endocrinology for diet modification regarding diabetes mellitus. She has not yet made an appointment for the eye doctor, Pap smear or mammogram. She has no acute concerns today. [facility] Family History Mother No problems noted. Father No problems noted. Daughter No problems noted. Daughter No problems noted. Daughter No problems noted. Brother No problems noted. Brother No problems noted. Brother No problems noted. Brother No problems noted. Brother No problems noted. Brother No problems noted. Social History Housing: Other Alcohol intake: current Patient Tobacco Use Status: Never used Tobacco Tobacco use type: Cigarette e-Cigarette/Vaping Use: Never Used Second Hand Smoke Exposure: No Current occupational status: unemployed Cognitive needs: No Hearing needs: No Vision needs: No Questionnaire PHQ-9 Over the last 2 weeks, how often have you been bothered by any of the following problems? 1. Little interest or pleasure in doing things: not at all 2. Feeling down, depressed, or hopeless: not at all 3. Trouble falling or staying asleep, or sleeping too much: not at all 4. Feeling tired or having little energy: not at all 5. Poor appetite or overeating: not at all 6. Feeling bad about yourself - or that you are a failure or have let yourself or your family down: not at all 7. Trouble concentrating on things, such as reading the newspaper or watching television: not at all 8. Moving or speaking so slowly that other people could have noticed. Or the opposite - being so fidgety or restless that you have been moving around a lot more than usual: not at all 9. Thoughts that you would be better off or of hurting yourself in some way: not at all Total score: 0 Depression Screening Interpretation: Negative Depression Screening Done: Yes 52461 - PHQ-9 Billing: Yes Source: Developed by Drs. Eduardo Araujo, Ximena Chavez, Nabeel Goode and colleagues, with an educational reinaldo from [employer]. Thrive Questionnaire Date Thrive assessed: 12/27/23 I am a: Patient What is your living situation today?: I have a steady place to live Within the past 12 months, did the food you bought not last and you didn't have the money to get more?: Never true Within the past 12 months, did you worry whether your food would run out before you got money to buy more?: Never true Do you have trouble paying for medicines?: No Do you have trouble getting transportation to medical appointments?: No Do you have trouble paying your heating and electricity bill?: No Do you have trouble taking care of your child, family member or friend?: No Do you have trouble with day-to-day activities such as bathing, preparing meals, shopping, managing finances, etc.?: No Are you currently unemployed and looking for a job?: No Are you interested in more education?: No Please select the resources that you would like help with: None Currently or been in a relationship where the following occur: No concerns reported THRIVE Score: 0 AUDIT C Alcohol Use Questionnaire (AUDIT-C) 1. How often do you have a drink containing alcohol?: Never 3. How often do you have six or more drinks on one occasion?: Never Total Score: 0 AMANUEL-7 AMB Questionnaire AMANUEL-7 Date AMANUEL - 7 assessed: 08/17/24 Feeling nervous, anxious, or on edge: 0 = Not at all Not being able to stop or control worryin = Not at all Worrying too much about different things: 0 = Not at all Trouble relaxin = Not at all Being so restless that it is hard to sit still: 0 = Not at all Becoming easily annoyed or irritable: 0 = Not at all Feeling afraid as if something awful might happen: 0 = Not at all Total AMANUEL-7 score (0-4 normal; 5-9 mild; 10-14 moderate; 15-21 severe): 0 Source: Developed by Drs. Eduardo Araujo, Ximena Chavez, Nabeel Goode and colleagues, with an educational reinaldo from [employer]. AMANUEL-7 Assessment Billing AMANUEL-7 Assessment Tool: AMANUEL-7 Assessment 60948 Review of Systems Const Denies body aches, Denies fatigue, Denies fever(s), Denies frequent falls, Denies headache(s) and Denies weakness Eyes Reports no additional complaints and Denies change in vision ENT Denies dysphagia, Denies dizziness, Denies facial pain, Denies headache(s), Denies nasal congestion and Denies odynophagia Card Denies chest pain, Denies syncope, Denies irregular heart rhythm, Denies leg edema, Denies lightheadedness and Denies dyspnea Resp Denies cough and Denies dyspnea GI Denies constipation, Denies dysphagia, Denies dyspepsia, Denies diarrhea, Denies nausea, Denies odynophagia and Denies vomiting Denies urinary frequency, Denies dysuria, Denies urinary hesitancy and Denies urinary urgency Musc Denies back pain and Denies myalgias Skin/Breast Reports system reviewed and no additional complaints, except as documented Neuro Denies dizziness, Denies syncope, Denies frequent falls, Denies headache(s) and Denies weakness Psych Reports no additional complaints Endo Denies fatigue Physical exam (Primary Care) Vital Signs: Last Vital Signs Pulse 70 08/17/24 15:52 BP 108/72 08/17/24 15:52 Pulse Ox 100 08/17/24 15:52 Oxygen Delivery Method Room Air 08/17/24 15:52 Tobacco/Smoking Status: Tobacco use Status Tobacco use date assessed 12/27/23 08/17/24 15:53 Patient Tobacco Use Status Never used Tobacco 08/17/24 15:53 Tobacco use type Cigarette 08/17/24 15:53 e-Cigarette/Vaping Use Never Used 08/17/24 15:53 Depression Screening Interpretation: Negative Thrive Assessment: Date of Thrive Assessment Date Thrive assessed 12/27/23 08/17/24 15:53 Currently or been in a relationship where the following occur: No concerns reported Const General: cooperative, healthy appearing, comfortable and no acute distress Orientation/consciousness: patient oriented x3 HENMT Head: Yes normocephalic Ears: hearing grossly normal bilaterally, external ears normal, TM's normal bilaterally and EAC's normal General nose exam: Normal external nose present Face and sinus: Yes normal facial exam and Yes sinuses nontender Mouth: Normal oral and palatal mucosa present and tongue normal Throat: Yes posterior oropharynx normal Eyes General: appearance normal, both eyes and all related structures Conjunctivae: conjunctivae normal Pupils: Equal, round and reactive pupils present EOM: EOMs intact bilaterally and No Nystagmus present Neck Neck: Yes normal visual inspection, Yes full ROM and Yes no lymphadenopathy Chest Chest palpation & inspection: normal inspection of the chest Resp Effort & Inspection: normal respiratory effort Auscultation: clear to auscultation bilaterally, no crackles, no rales, no rhonchi, no wheezes and breath sounds present Cardio Rate: regular rate Rhythm: regular rhythm Peripheral pulses: radial pulses present and dorsalis pedis present GI Inspection: Yes normal to inspection and No Abdominal wall edema Palpation (GI): Soft to palpation, not firm and nontender Auscultation: normal bowel sounds Rectal Exam - Female: deferred General: Yes no CVA tenderness Back/Spine/Pelvis Back: no CVA tenderness Skin General skin exam: no rashes or lesions noted Neuro General: patient oriented x3 Cranial nerves: Yes Equal, round and reactive pupils present, Yes Midline tongue present, Yes Ability to bilaterally elevate shoulders present and No Nystagmus present Gait exam (Neuro): Normal gait present Extrem General: Yes normal to inspection, Yes full ROM, No no pedal edema and No edema Psych Speech and movement: Normal speech and movement present Affect: normal affect Insight: Good insight present (Psych) Judgement: Good judgement present (Psych) Results AMB Hemoglobin A1c AMB Hemoglobin A1c 7.1 % Last Edit by CASIE Torres on 08/17/24 16:10 Coding Level of Care Code Est Pt Prev Care 18-39y(32732) Diagnoses Iron deficiency anemia D50.9 Hypercholesterolemia E78.00 Overweight (BMI 25.0-29.9) E66.3 Type 2 diabetes mellitus with hyperglycemia E11.65 Annual physical exam Z00.00 Additional Codes AMANUEL-7 Assessment Billing - AMANUEL-7 Assessment Tool: AMANUEL-7 Assessment 72104 ([id number]) PHQ-9 - 69972 - PHQ-9 Billing: Yes ([id number]) Assessment & Plan Assessment & Plan (1) Iron deficiency anemia: Code(s): D50.9 - Iron deficiency anemia, unspecified Category: Medical Plan: We will continue to monitor the blood work and continue on iron supplementation (2) Hypercholesterolemia: Code(s): E78.00 - Pure hypercholesterolemia, unspecified Category: Medical Plan: Avoid foods that are high in cholesterol such as red meat, fried foods, eggs and baked goods. Triglyceride goal of less than 150 and LDL goal of less than 100. Not currently on medical management we will continue to monitor blood work and if continues to be elevated may require statin. Patient is declining medication at this time. Discussed risks of elevated cholesterol levels and patient understands and will work on the diet. (3) Overweight (BMI 25.0-29.9): Code(s): E66.3 - Overweight Category: Medical Plan: Healthy diet and regular exercise is encouraged. (4) Type 2 diabetes mellitus with hyperglycemia: Code(s): E11.65 - Type 2 diabetes mellitus with hyperglycemia Category: Medical Plan: Decrease the amount of carbohydrates such as pasta, bread, rice, and potatoes and limit the amount of sweets. Although fruits are generally healthy they should be eaten in moderation as they are still high in sugar. Hemoglobin A1c goal of less than 7%. A1c 7.1% on exam today. Advised patient to be in medication which she is declining at this time. Discussed that we will repeat A1c in 3 months' time and if still elevated we will likely need medication. Patient agrees to this plan. (5) Annual physical exam: Code(s): Z00.00 - Encounter for general adult medical examination without abnormal findings Category: Medical Plan: Patient is not up-to-date on all recommended routine screenings and vaccinations for her age. Reminded patient about mammogram and Pap smear and gave patient phone numbers for the specialist to make these appointments. Patient understands and we will reach out if she has any issue scheduling these appointments. Plan This note was constructed using voice recognition software. While every effort has been made to ensure accuracy and case finishing machine adjuster, still areas may have been included sometimes these areas may affect the content or meeting of the given symptoms. Total time spent caring for the patient today was 30 minutes. This includes time spent before the visit reviewing the chart, time spent during the visit, and time spent after the visit and documentation. Orders: Orders Lipid Panel 3 Months E78.00 - Pure hypercholesterolemia, unspecified AMB Hemoglobin A1c Today E11.65 - Type 2 diabetes mellitus with hyperglycemia Hemoglobin A1c 3 Months E11.65 - Type 2 diabetes mellitus with hyperglycemia
== END 2024-08-17 16:35 | disposition home or self-care (01) ==
LOC: HO.HMCH 15:51
PROVIDERS: PCP Internal Medicine
DX: Z00.00 Encounter for general adult medical examination without abnormal findings (principal); D50.9 Iron deficiency anemia, unspecified; E78.00 Pure hypercholesterolemia, unspecified; E11.65 Type 2 diabetes mellitus with hyperglycemia; E66.3 Overweight

== ENCOUNTER → 2024-08-17 15:51 | Outpatient (BNVA) | payer OTHER, SELFPAY | PROVIDERS: PCP Internal Medicine | DX: Z00.00 Encounter for general adult medical examination without abnormal findings (principal); E11.65 Type 2 diabetes mellitus with hyperglycemia; D50.9 Iron deficiency anemia, unspecified; E78.00 Pure hypercholesterolemia, unspecified; E66.3 Overweight | CPT/HCPCS: 83036; 96127; 99395 ==

== ENCOUNTER 2024-08-27 10:44 | Outpatient (AMB) | payer OTHER, SELFPAY ==
--- NOTE | 2024-08-27 11:10 | A.OFFVIS_ITS ---
VS Expanded 08/27/24 11:13 Height 5 ft Weight 152 lb 8.958 oz BMI 29.8 Intake Visit Reasons: Type 2 DM Allergies No Known Allergies Allergy (Verified 08/17/24 16:18) Nutrition Presentation Details: Pt presents for MNT f/u for T2DM Visit was conducted via Interpreting services: Michelle Vargas Surveying Crew Stake Runner # [id number] Pt reports increasing on food portion sizes, choosing higher sugar beverages Physical activity has lessened from last's year. Pt reports needing supplies to monitor BG - message was sent to PCP for rx BS Monitoring Most Recent Diabetes Results: Microalb/Creat Ratio TNP 06/02/24 Cholesterol 169 mg/dL (<200) 06/02/24 HDL Cholesterol 39 mg/dL (>40) L 06/02/24 Triglycerides 76 mg/dL (<150) 06/02/24 Creatinine 0.78 mg/dL (0.5-1.4) 06/02/24 Blood Urea Nitrogen 14 mg/dL (9-16) 06/02/24 Sodium 139 mmol/L (135-145) 06/02/24 Potassium 3.9 mmol/L (3.3-5.1) 06/02/24 Chloride 106 mmol/L (96-108) 06/02/24 Carbon Dioxide 26 mmol/L (22-29) 06/02/24 Calcium 9.5 mg/dL (8.4-10.2) 06/02/24 AST 11 U/L (5-31) 06/02/24 ALT 10 U/L (0-31) 06/02/24 Total Protein 7.4 g/dL (6.5-8.0) 06/02/24 Albumin 4.1 g/dL (3.5-5.0) 06/02/24 [facility] Family History Mother No problems noted. Father No problems noted. Daughter No problems noted. Daughter No problems noted. Daughter No problems noted. Brother No problems noted. Brother No problems noted. Brother No problems noted. Brother No problems noted. Brother No problems noted. Brother No problems noted. Social History Housing: Other Alcohol intake: current Patient Tobacco Use Status: Never used Tobacco Tobacco use type: Cigarette e-Cigarette/Vaping Use: Never Used Second Hand Smoke Exposure: No Current occupational status: unemployed Cognitive needs: No Hearing needs: No Vision needs: No Assessment & Plan Assessment & Plan (1) Type 2 diabetes mellitus with hyperglycemia: Code(s): E11.65 - Type 2 diabetes mellitus with hyperglycemia Category: Medical Plan: wt: 60kg , 62 kg( 11/2023) 67 kg (02/2024) --- 69 kg (09/15 Est kcal needs as per MSJ: 160-1700 (40% carb, 30% protein/fat) Est fluid needs as per 25-30 ml/d: 1800 Est prot per day as per 1 g/kg bw: 60-62 g Recommend fiber intake : 8-10 g per day and gradually increase to 25-28 g per day for women and 35-38 g for men or as tolerated Recommend sodium intake per day : less than 2000 mg Educated patient on: ( R = reviewed V = verbalizes understanding N/R = needs review N/A = not applicable * Food sources of carbohydrate, adequate serving sizes and its role in various health conditions: R , V * Differences between complex carbohydrates a simple carbohydrates, role of fiber in diet: R * Differences between types of fats and role in diet (mono on saturated fat fatty acids, saturated fatty acids, trans fats): R, V * Food sources of sodium in salt and healthy modifications for heart health in kidney health: R * Vitamins and minerals: R * Healthy plate method concept: R V * Physical activity: Benefits a precaution: R , V * Dietary prevention of Hyperglycemia: R , V * Patient Instructions: Resume choosing beverages with no sugar added (water, herb infused water Have 3 meals a day and reduce portion of starches to 1 cup serving at dinner Reduce on pastries/cookies/juices/sodas - foods with sugars in them Coding Level of Care Code Nutr Indiv Subseq (70127) Diagnoses Type 2 diabetes mellitus with hyperglycemia E11.65 Time Spent (min) 30
[2024-08-27 11:13] VITALS: BMI 29.8
== END 2024-08-27 11:43 | disposition home or self-care (01) ==
PROVIDERS: PCP Internal Medicine; Visit Provider Dietitian, Registered
DX: E11.65 Type 2 diabetes mellitus with hyperglycemia (principal)

== ENCOUNTER → 2024-08-27 10:44 | Outpatient (BNVA) | payer OTHER, SELFPAY | PROVIDERS: PCP Internal Medicine; Visit Provider Dietitian, Registered | DX: E11.65 Type 2 diabetes mellitus with hyperglycemia (principal); Z71.3 Dietary counseling and surveillance | CPT/HCPCS: 97803 ==

== ENCOUNTER 2024-11-17 15:16 | Outpatient (AMB) | payer OTHER, SELFPAY ==
--- NOTE | 2024-11-17 15:38 | A.OFFPC_ITS ---
Vital Signs 11/17/24 15:41 Height 5 ft Weight 143 lb BMI 27.9 BP 110/64 Blood Pressure Location Lt brachial Position Sitting Pulse 89 Pulse Source Pulse Oximeter Temp 97.1 F Temp Source Temporal Artery Scan Pulse Oximetry (%) 99 Oxygen Delivery Method Room Air Intake Visit Reasons: f/u DM and HLD Intake Note: Patient is here to follow up on DM, HLD. Information Systems Security Developer Required: Yes Information Systems Security Developer Language: Afghan Creole Information Systems Security Developer Name: Yadiel ([id number]) Information Interpreted: non-clinical & clinical Chain Mender: Not Required per policy Accompanied by: Self / Same As Patient Allergies No Known Allergies Allergy (Verified 11/17/24 15:58) Medication List - Last Reconciled 11/17/24 by Nuris Frias PA-C acetaminophen 1,000 mg (2 x 500 mg) PO Q6H PRN ascorbate calcium (vitamin C) 500 mg PO DAILY blood sugar diagnostic (FreeStyle Lite Strips) As directed check the BS TID blood-glucose meter (FreeStyle Lite Meter kit) As directed ferrous sulfate (Feosol) 325 mg PO DAILY lancets (FreeStyle Lancets) As directed check BS QD Tobacco use date assessed: 11/17/24 Dental Screening Dental Screen Date: 11/17/24 Did you have a dental visit in the last 12 months?: Yes Did you have a dental problem in the last 6 months where you did not have access to dental care?: No Was dental information given to patient?: Patient has dentist HPI f/u DM and HLD HPI Details 39-year-old female with a past medical h istory of diabetes mellitus and hypercholesterolemia last seen 07/2024 coming in for follow up. Information Systems Security Developer Yadiel ([id number]) was used for the duration of this visit. Patient tells us today she has been doing well with her dietary and lifestyle modification. She has been cutting back on the amount of food she eats as well as cutting out carbs and sugars. She did not see the print binding and finishing worker as she missed her appointment. She has no other concerns today. [facility] Surgical History No pertinent past surgical history Family History Mother No problems noted. Father No problems noted. Daughter No problems noted. Daughter No problems noted. Daughter No problems noted. Brother No problems noted. Brother No problems noted. Brother No problems noted. Brother No problems noted. Brother No problems noted. Brother No problems noted. Social History Housing: Other Alcohol intake: current Patient Tobacco Use Status: Never used Tobacco Tobacco use type: Cigarette e-Cigarette/Vaping Use: Never Used Second Hand Smoke Exposure: No service: No Current occupational status: unemployed Cognitive needs: No Hearing needs: No Vision needs: No Questionnaire PHQ-9 Over the last 2 weeks, how often have you been bothered by any of the following problems? 1. Little interest or pleasure in doing things: not at all 2. Feeling down, depressed, or hopeless: not at all 3. Trouble falling or staying asleep, or sleeping too much: not at all 4. Feeling tired or having little energy: not at all 5. Poor appetite or overeating: not at all 6. Feeling bad about yourself - or that you are a failure or have let yourself or your family down: not at all 7. Trouble concentrating on things, such as reading the newspaper or watching television: not at all 8. Moving or speaking so slowly that other people could have noticed. Or the opposite - being so fidgety or restless that you have been moving around a lot more than usual: not at all 9. Thoughts that you would be better off or of hurting yourself in some way: not at all Total score: 0 Depression Screening Interpretation: Negative Depression Screening Done: Yes Source: Developed by Drs. Eduardo Araujo, Ximena Chavez, Nabeel Goode and colleagues, with an educational reinaldo from [employer]. Thrive Questionnaire Date Thrive assessed: 11/17/24 I am a: Patient What is your living situation today?: I have a steady place to live Within the past 12 months, did the food you bought not last and you didn't have the money to get more?: Never true Within the past 12 months, did you worry whether your food would run out before you got money to buy more?: Never true Do you have trouble paying for medicines?: No Do you have trouble getting transportation to medical appointments?: No Do you have trouble paying your heating and electricity bill?: No Do you have trouble taking care of your child, family member or friend?: No Do you have trouble with day-to-day activities such as bathing, preparing meals, shopping, managing finances, etc.?: No Are you currently unemployed and looking for a job?: No Are you interested in more education?: No Please select the resources that you would like help with: None Currently or been in a relationship where the following occur: No concerns reported THRIVE Score: 0 AUDIT C Alcohol Use Questionnaire (AUDIT-C) 1. How often do you have a drink containing alcohol?: Never Total Score: 0 AMANUEL-7 AMB Questionnaire AMANUEL-7 Date AMANUEL - 7 assessed: 11/17/24 Feeling nervous, anxious, or on edge: 0 = Not at all Not being able to stop or control worryin = Not at all Worrying too much about different things: 0 = Not at all Trouble relaxin = Not at all Being so restless that it is hard to sit still: 0 = Not at all Becoming easily annoyed or irritable: 0 = Not at all Feeling afraid as if something awful might happen: 0 = Not at all Total AMANUEL-7 score (0-4 normal; 5-9 mild; 10-14 moderate; 15-21 severe): 0 Source: Developed by Drs. Eduardo Araujo, Ximena Chavez, Nabeel Goode and colleagues, with an educational reinaldo from [employer]. Review of Systems Const Denies body aches, Denies chills, Denies fever(s), Denies headache(s) and Denies poor appetite Eyes Reports no additional complaints ENT Denies dizziness and Denies headache(s) Card Denies chest pain, Denies syncope, Denies edema, Denies irregular heart rhythm, Denies lightheadedness and Denies dyspnea Resp Denies cough and Denies dyspnea GI Denies abdominal pain, Denies constipation, Denies diarrhea, Denies nausea and Denies vomiting Reports no additional complaints Musc Reports no additional complaints and Denies abnormal gait Skin/Breast Reports system reviewed and no additional complaints, except as documented Neuro Denies abnormal gait, Denies dizziness, Denies syncope and Denies headache(s) Psych Reports no additional complaints Physical exam (Primary Care) Vital Signs: Last Vital Signs Temp 97.1 F 11/17/24 15:41 Pulse 89 11/17/24 15:41 BP 110/64 11/17/24 15:41 Pulse Ox 99 11/17/24 15:41 Oxygen Delivery Method Room Air 11/17/24 15:41 BMI result Body Mass Index 27.9 Tobacco/Smoking Status: Tobacco use Status Tobacco use date assessed 12/27/23 11/17/24 15:39 Patient Tobacco Use Status Never used Tobacco 11/17/24 15:39 Tobacco use type Cigarette 11/17/24 15:39 e-Cigarette/Vaping Use Never Used 11/17/24 15:39 PHQ-9: PHQ-9 Score PHQ-9: Total score 0 11/17/24 15:39 Depression Screening Interpretation: Negative Thrive Assessment: Date of Thrive Assessment Date Thrive assessed 11/17/24 11/17/24 15:39 Currently or been in a relationship where the following occur: No concerns reported Const General: cooperative, healthy appearing, comfortable and no acute distress Orientation/consciousness: patient oriented x3 HENMT Head: Yes normocephalic Ears: hearing grossly normal bilaterally General nose exam: Normal external nose present Eyes General: appearance normal, both eyes and all related structures Conjunctivae: conjunctivae normal Neck Neck: Yes full ROM and Yes no lymphadenopathy Resp Effort & Inspection: normal respiratory effort Auscultation: clear to auscultation bilaterally, no crackles, no rales, no rhonchi and no wheezes Cardio Rate: regular rate Rhythm: regular rhythm Skin General skin exam: no rashes or lesions noted Neuro General: patient oriented x3 Gait exam (Neuro): Normal gait present Extrem General: Yes normal to inspection, Yes full ROM and No edema Psych Affect: normal affect Attitude: cooperative Insight: Good insight present (Psych) Judgement: Good judgement present (Psych) Results AMB Hemoglobin A1c AMB Hemoglobin A1c 6.5 % Last Edit by CASIE Villeda on 11/17/24 16:00 Coding Level of Care Code Est Pt Level 3 (52971) Diagnoses Hypercholesterolemia E78.00 Overweight (BMI 25.0-29.9) E66.3 Type 2 diabetes mellitus with hyperglycemia E11.65 Assessment & Plan Assessment & Plan (1) Hypercholesterolemia: Code(s): E78.00 - Pure hypercholesterolemia, unspecified Category: Medical Plan: Avoid foods that are high in cholesterol such as red meat, fried foods, eggs and baked goods. Triglyceride goal of less than 150 and LDL goal of less than 100. Not currently on medical management. Reminded patient about blood work. (2) Overweight (BMI 25.0-29.9): Code(s): E66.3 - Overweight Category: Medical Plan: Healthy diet and regular exercise is encouraged. (3) Type 2 diabetes mellitus with hyperglycemia: Code(s): E11.65 - Type 2 diabetes mellitus with hyperglycemia Category: Medical Plan: Decrease the amount of carbohydrates such as pasta, bread, rice, and potatoes and limit the amount of sweets. Although fruits are generally healthy they should be eaten in moderation as they are still high in sugar. Hemoglobin A1c goal of less than 7%. A1c improved to 6.5% today. We can continue to monitor without medication at this time and have patient take blood sugars at home. Follow up in 3 months. Plan This note was constructed using voice recognition software. While every effort has been made to ensure accuracy and manager of care, still areas may have been included sometimes these areas may affect the content or meeting of the given sy mptoms. Total time spent caring for the patient today was 20 minutes. This includes time spent before the visit reviewing the chart, time spent during the visit, and time spent after the visit and documentation. Orders: Orders AMB Hemoglobin A1c Today E11.65 - Type 2 diabetes mellitus with hyperglycemia Medications: Refilled blood-glucose meter (FreeStyle Lite Meter kit) As directed 1 ea 0RF E11.65 - Type 2 diabetes mellitus with hyperglycemia blood sugar diagnostic (FreeStyle Lite Strips) As directed check the BS TID 300 ea 3RF E11.65 - Type 2 diabetes mellitus with hyperglycemia, E11.9 - Type 2 diabetes mellitus without complications lancets (FreeStyle Lancets) As directed check BS QD 300 ea 3RF E11.65 - Type 2 diabetes mellitus with hyperglycemia
[2024-11-17 15:41] VITALS: BP 110/64; PULSE 89; TEMP 36.2; O2SAT 99; BMI 27.9
== END 2024-11-17 16:10 | disposition home or self-care (01) ==
PROVIDERS: PCP Internal Medicine
DX: E78.00 Pure hypercholesterolemia, unspecified (principal); E66.3 Overweight; E11.65 Type 2 diabetes mellitus with hyperglycemia

== ENCOUNTER → 2024-11-17 15:16 | Outpatient (BNVA) | payer OTHER, SELFPAY | PROVIDERS: PCP Internal Medicine | DX: E78.00 Pure hypercholesterolemia, unspecified (principal); E66.3 Overweight; E11.65 Type 2 diabetes mellitus with hyperglycemia | CPT/HCPCS: 83036; 99212 ==

== ENCOUNTER 2024-11-24 08:15 | Outpatient (REF) | payer OTHER, SELFPAY ==
[2024-11-24 09:05] LABS: Estimated Average Glucose 128 mg/dL; Hemoglobin A1C 150.4572 umol/L; Hemoglobin A1c % 6.1 % (<6.0); Total Hemoglobin (HGBA1C) 3470.7954 umol/L
[2024-11-24 09:51] LABS: Cholesterol 155 mg/dL (<200); HDL Cholesterol 37 mg/dL (>40); LDL Cholesterol Calculated 108 mg/dL (<100); Triglycerides 51 mg/dL (<150)
== END 2024-11-24 08:16 | disposition home or self-care (01) ==
LOC: HO.LAB 08:15
DX: E11.65 Type 2 diabetes mellitus with hyperglycemia (principal); E78.00 Pure hypercholesterolemia, unspecified
CPT/HCPCS: 36415; 80061; 83036

== ENCOUNTER 2024-12-14 12:30 | Outpatient (AMB) | payer OTHER, SELFPAY ==
[2024-12-14 13:06] VITALS: BMI 28.3
--- NOTE | 2024-12-14 13:06 | MHC.AMNUTRGE ---
VS Expanded 12/14/24 13:06 Height 5 ft Weight 144 lb 13.499 oz BMI 28.3 Intake Visit Reasons: T2DM Allergies No Known Allergies Allergy (Verified 11/17/24 15:58) Nutrition Presentation Details: Pt presents for MNT f/u for T2DM interpreting services:carolyn kirkpatrick : [id number] Pt brought BG record and 7 d average is at 109 mg/dl Pt reports working on reducing sweets/fried foods fish: 2 twice/day vegetables: daily 1-2/d fruits: 1/-2/day dairy: 0-1/d BS Monitoring Most Recent Diabetes Results: Cholesterol 155 mg/dL (<200) 11/24/24 HDL Cholesterol 37 mg/dL (>40) L 11/24/24 Triglycerides 51 mg/dL (<150) 11/24/24 [facility] Surgical History No pertinent past surgical history Family History Mother No problems noted. Father No problems noted. Daughter No problems noted. Daughter No problems noted. Daughter No problems noted. Brother No problems noted. Brother No problems noted. Brother No problems noted. Brother No problems noted. Brother No problems noted. Brother No problems noted. Social History Housing: Other Alcohol intake: current Patient Tobacco Use Status: Never used Tobacco Tobacco use type: Cigarette e-Cigarette/Vaping Use: Never Used Second Hand Smoke Exposure: No service: No Current occupational status: unemployed Cognitive needs: No Hearing needs: No Vision needs: No Assessment & Plan Assessment & Plan (1) Type 2 diabetes mellitus with hyperglycemia: Code(s): E11.65 - Type 2 diabetes mellitus with hyperglycemia Category: Medical Plan: wt: 62 kg( 11/2023) 67 kg (02/2024) --- 69 kg (09/15 - 66 kg (12/15) Est kcal needs as per MSJ: 160-1700 (40% carb, 30% protein/fat) Est fluid needs as per 25-30 ml/d: 1800 Est prot per day as per 1 g/kg bw: 60-62 g Recommend fiber intake : 8-10 g per day and gradually increase to 25-28 g per day for women and 35-38 g for men or as tolerated Recommend sodium intake per day : less than 2000 mg Educated patient on: ( R = reviewed V = verbalizes understanding N/R = needs review N/A = not applicable Food sources of carbohydrate, adequate serving sizes and its role in various health conditions: R , V Differences between complex carbohydrates a simple carbohydrates, role of fiber in diet: R Differences between types of fats and role in diet (mono on saturated fat fatty acids, saturated fatty acids, trans fats): R, V Food sources of sodium in salt and healthy modifications for heart health in kidney health: R Vitamins and minerals: R Healthy plate method concept: R V Physical activity: Benefits a precaution: R , V Dietary prevention of Hyperglycemia: R , V Patient Instructions: Incorporate vegetable/fruit/nut smoothie with water as snack - see list of low carb/high fiber natural foods smoothie options Engage in physical activity walking 30-45 minutes 3-4 times a week Continue working on reducing fried foods items - opt for baking Coding Level of Care Code Nutr Indiv Subseq (75184) Diagnoses Type 2 diabetes mellitus with hyperglycemia E11.65 Time Spent (min) 30
== END 2024-12-14 13:34 | disposition home or self-care (01) ==
LOC: HO.ENCR 12:31
PROVIDERS: Visit Provider Dietitian, Registered
DX: E11.65 Type 2 diabetes mellitus with hyperglycemia (principal)

== ENCOUNTER → 2024-12-14 12:30 | Outpatient (BNVA) | payer OTHER, SELFPAY | PROVIDERS: Visit Provider Dietitian, Registered | DX: E11.65 Type 2 diabetes mellitus with hyperglycemia (principal); Z71.3 Dietary counseling and surveillance | CPT/HCPCS: 97803 ==

== ENCOUNTER 2025-02-23 15:13 | Outpatient (AMB) | payer OTHER, SELFPAY ==
[2025-02-23 15:14] VITALS: BP 110/70; PULSE 76; O2SAT 99; BMI 28.1
--- NOTE | 2025-02-23 15:14 | A.OFFPC_ITS ---
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: Not Required per policy Accompanied by: Self / Same As Patient Allergies No Known Allergies Allergy (Verified 02/23/25 15:15) Medication List - Last Reconciled 02/23/25 by Carlita Jin MD acetaminophen 1,000 mg (2 x 500 mg) PO Q6H PRN ascorbate calcium (vitamin C) 500 mg PO DAILY blood sugar diagnostic (FreeStyle Lite Strips) As directed check the BS TID blood-glucose meter (FreeStyle Lite Meter kit) As directed ferrous sulfate (Feosol) 325 mg PO DAILY lancets (FreeStyle Lancets) As directed check BS QD Tobacco use date assessed: 02/23/25 Dental Screening Dental Screen Date: 02/23/25 Did you have a dental visit in the last 12 months?: Yes Did you have a dental problem in the last 6 months where you did not have access to dental care?: No Was dental information given to patient?: Patient has dentist HPI 3 month f/u HPI Details Byron [id number] Creole interpret [facility] Surgical History No pertinent past surgical history Family History Mother No problems noted. Father No problems noted. Daughter No problems noted. Daughter No problems noted. Daughter No problems noted. Brother No problems noted. Brother No problems noted. Brother No problems noted. Brother No problems noted. Brother No problems noted. Brother No problems noted. Social History Housing: Other Alcohol intake: current Patient Tobacco Use Status: Never used Tobacco Tobacco use type: Cigarette e-Cigarette/Vaping Use: Never Used Second Hand Smoke Exposure: No service: No Current occupational status: unemployed Cognitive needs: No Hearing needs: No Vision needs: No Questionnaire PHQ-9 Over the last 2 weeks, how often have you been bothered by any of the following problems? 1. Little interest or pleasure in doing things: not at all 2. Feeling down, depressed, or hopeless: not at all 3. Trouble falling or staying asleep, or sleeping too much: not at all 4. Feeling tired or having little energy: not at all 5. Poor appetite or overeating: not at all 6. Feeling bad about yourself - or that you are a failure or have let yourself or your family down: not at all 7. Trouble concentrating on things, such as reading the newspaper or watching television: not at all 8. Moving or speaking so slowly that other people could have noticed. Or the opposite - being so fidgety or restless that you have been moving around a lot more than usual: not at all 9. Thoughts that you would be better off or of hurting yourself in some way: not at all Total score: 0 Depression Screening Interpretation: Negative Depression Screening Done: Yes Source: Developed by Drs. Eduardo Araujo, Ximena Chavez, Nabeel Goode and colleagues, with an educational reinaldo from [email or web address]. Thrive Questionnaire Date Thrive assessed: 02/23/25 I am a: Patient What is your living situation today?: I have a steady place to live Within the past 12 months, did the food you bought not last and you didn't have the money to get more?: Never true Within the past 12 months, did you worry whether your food would run out before you got money to buy more?: Never true Do you have trouble paying for medicines?: No Do you have trouble getting transportation to medical appointments?: No Do you have trouble paying your heating and electricity bill?: No Do you have trouble taking care of your child, family member or friend?: No Do you have trouble with day-to-day activities such as bathing, preparing meals, shopping, managing finances, etc.?: No Are you currently unemployed and looking for a job?: No Are you interested in more education?: No Please select the resources that you would like help with: None Currently or been in a relationship where the following occur: No concerns reported THRIVE Score: 0 AUDIT C Alcohol Use Questionnaire (AUDIT-C) 1. How often do you have a drink containing alcohol?: Never 3. How often do you have six or more drinks on one occasion?: Never Total Score: 0 AMANUEL-7 AMB Questionnaire AMANUEL-7 Date AMANUEL - 7 assessed: 02/23/25 Feeling nervous, anxious, or on edge: 0 = Not at all Not being able to stop or control worryin = Not at all Worrying too much about different things: 0 = Not at all Trouble relaxin = Not at all Being so restless that it is hard to sit still: 0 = Not at all Becoming easily annoyed or irritable: 0 = Not at all Feeling afraid as if something awful might happen: 0 = Not at all Total AMANUEL-7 score (0-4 normal; 5-9 mild; 10-14 moderate; 15-21 severe): 0 Source: Developed by Drs. Eduardo Araujo, Ximena Chavez, Nabeel Goode and colleagues, with an educational reinaldo from [email or web address]. Physical exam (Primary Care) Vital Signs: Last Vital Signs Pulse 76 02/23/25 15:14 BP 110/70 02/23/25 15:14 Pulse Ox 99 02/23/25 15:14 Oxygen Delivery Method Room Air 02/23/25 15:14 BMI result Body Mass Index 28.1 Tobacco/Smoking Status: Tobacco use Status Tobacco use date assessed 02/23/25 02/23/25 15:16 Patient Tobacco Use Status Never used Tobacco 02/23/25 15:16 Tobacco use type Cigarette 02/23/25 15:16 e-Cigarette/Vaping Use Never Used 02/23/25 15:16 PHQ-9: PHQ-9 Score PHQ-9: Total score 0 02/23/25 16:12 Depression Screening Interpretation: Negative Thrive Assessment: Date of Thrive Assessment Date Thrive assessed 02/23/25 02/23/25 15:16 Currently or been in a relationship where the following occur: No concerns reported Const General: alert; No acute distress Eyes Conjunctivae: conjunctivae normal Resp Auscultation: clear to auscultation bilaterally Cardio Rate: regular rate Rhythm: regular rhythm GI Inspection: Yes normal to inspection Extrem General: Yes normal to inspection and No edema Results AMB Hemoglobin A1c AMB Hemoglobin A1c 6.1 % Last Edit by CASIE Cervantes on 02/23/25 16 :13 Results Reviewed Results Reviewed: Laboratory Last Values Hgb A1c (Clinic) 6.1 % (4.0-6.0) H 02/23/25 15:16 Coding Level of Care Code Est Pt Level 4 (22821) Complex EM visit Add On G2211 Diagnoses Type 2 diabetes mellitus with hyperglycemia E11.65 Overweight (BMI 25.0-29.9) E66.3 Hypercholesterolemia E78.00 Iron deficiency anemia D50.9 Assessment & Plan Assessment & Plan (1) Type 2 diabetes mellitus with hyperglycemia: Code(s): E11.65 - Type 2 diabetes mellitus with hyperglycemia Category: Medical Plan: Decrease the amount of carbohydrate intake, pasta, bread, rice and potatoes are all sugar and that is aside from all the sweet stuff, remember that fruits are good but they are Sweet also. Hemoglobin A1c goal of less than 6.5. Patient is at goal (2) Overweight (BMI 25.0-29.9): Code(s): E66.3 - Overweight Category: Medical Plan: Diet and exercise (3) Hypercholesterolemia: Code(s): E78.00 - Pure hypercholesterolemia, unspecified Category: Medical Plan: Avoid fried foods, chicken skin, eggs, butter margarine, pastries and meat. Be it pork or beef they have a lot of cholesterol LDL goal of less than 100 and triglyceride of less than 150. Patient is doing diet and exercise (4) Iron deficiency anemia: Code(s): D50.9 - Iron deficiency anemia, unspecified Category: Medical Plan: We need to continue monitoring. Presently on iron Plan History of Present Illness The patient is a 39-year-old female presenting for the management of diabetes mellitus, hypercholesterolemia, and iron deficiency anemia. Her diabetes management shows a recent hemoglobin A1c of 6.1, indicating good control achieved through lifestyle interventions, including dietary adjustments and regular exercise. Hypercholesterolemia persists, with current LDL levels at 108 mg/dL. The patient is engaged in dietary modifications aimed at reducing cholesterol but acknowledges the strategic possibility of medication if dietary measures do not suffice. Iron deficiency anemia is being treated with iron supplementation. She adheres to dietary advice, avoids high-fat foods, and f ocuses on maintaining a healthy lifestyle. The patient comprehends the importance of these interventions to prevent cardiovascular events and improve her overall health status. Health Maintenance - Adherence to diet and exercise for diabetes and cholesterol management. - Monitoring of hemoglobin A1c every three months; target goal discussed as less than 6.5%. - LDL cholesterol management with a goal of less than 100 mg/dL discussed; current level at 108 mg/dL. - Nutrition guidance provided, emphasizing avoidance of high-fat foods, fried foods, fast foods, and certain meats. - Discussion about pneumonia vaccination as a preventive measure given her diabetes. - Eye examination referral discussed to monitor for diabetes-related vision changes. Social History - Engaged in dietary changes and regular exercise to manage health conditions. - Requires interpretation services in [facility]. - Eating a varied diet under guidance from both an joy operator helper and a manager mall. Review of Systems - Endocrine: Reports control of diabetes through diet and exercise; hemoglobin A1c at target. - Cardiovascular: Denies history of heart attacks or strokes. - Hematologic: Managed iron deficiency anemia with supplementation. - Ophthalmologic: Denies any recent eye examinations. Physical Exam Results - Labs: Hemoglobin A1c at 6.1% (goal less than 6.5%), LDL cholesterol at 108 mg/dL (goal less than 100 mg/dL), microcytic anemia indication. Plan 1. 1%. For hypercholesterolemia, dietary measures continue, with potential pharmacologic intervention discussed should LDL levels not meet targets. Anemia is addressed with iron supplementation. Preventative measures include discussions on pneumonia vaccination, and a referral for an ophthalmologic examination to prevent complications related to diabetes. Follow-up lab investigations will occur three months hence to gauge progress.: Patient was informed and verbally consented to the use of an ambient scribe for clinic note documentation during this visit. Discussion Notes I engaged in an informed dialogue with the patient about her conditions and management strategies. We discussed the efficacy of her current diabetes regime n, emphasizing the importance of maintaining dietary and exercise adherence to sustain her hemoglobin A1c goal. I outlined cholesterol management targets and our approach toward achieving these through diet, with consideration of medication if needed. I briefed her on the risks and benefits of using statins for lipid management if future lab results necessitate. Regarding anemia, the discussion included ongoing iron supplementation. I recommended pneumonia vaccination based on diabetes-induced vulnerability to infectious diseases and proposed an eye examination referral to monitor for retinopathies. Future appointments and diagnostic assessments were scheduled to ensure continuity of care. Patient Instructions - Continue with dietary guidelines and exercise regimen as discussed to manage diabetes and cholesterol. - Avoid high-fat foods, fried foods, and certain meats as emphasized in dietary instructions. - Follow through with iron supplementation for anemia. - Plan for repeat blood work in three months before the next appointment. - Consider receiving the pneumonia vaccine when ready. - Attend the referred eye examination to check on diabetes-related vision issues. - Stay informed of symptoms that may require immediate attention and follow up accordingly. Orders: Orders Complete Blood Count Auto Diff 3 Months D50.9 - Iron deficiency anemia, unspecified IRON PROFILE 3 Months D50.9 - Iron deficiency anemia, unspecified Lipid Panel 3 Months D50.9 - Iron deficiency anemia, unspecified, E78.00 - Pure hypercholesterolemia, unspecified Free T4 (Free Thyroxine) 3 Months D50.9 - Iron deficiency anemia, unspecified Microalbumin, Random (w Creat) 3 Months D50.9 - Iron deficiency anemia, unspecified, E11.65 - Type 2 diabetes mellitus with hyperglycemia AMB Hemoglobin A1c Today Z13.9 - Encounter for screening, unspecified Comprehensive Met. Panel 3 Months D50.9 - Iron deficiency anemia, unspecified Ferritin 3 Months D50.9 - Iron deficiency anemia, unspecified Vitamin B12 and Folate 3 Months D50.9 - Iron deficiency anemia, unspecified Reticulocyte Count 3 Months D50.9 - Iron deficiency anemia, unspecified Hemoglobin A1c 3 Months D50.9 - Iron deficiency anemia, unspecified Thyroid Stimulating Hormone 3 Months D50.9 - Iron deficiency anemia, unspecified Creatinine Urine 3 Months D50.9 - Iron deficiency anemia, unspecified, E11.65 - Type 2 diabetes mellitus with hyperglycemia Referrals Ophthalmology Referral E11.65 - Type 2 diabetes mellitus with hyperglycemia
== END 2025-02-23 16:11 | disposition home or self-care (01) ==
PROVIDERS: PCP Internal Medicine; Visit Provider Internal Medicine
DX: E11.65 Type 2 diabetes mellitus with hyperglycemia (principal); E66.3 Overweight; E78.00 Pure hypercholesterolemia, unspecified; D50.9 Iron deficiency anemia, unspecified; Z13.9 Encounter for screening, unspecified

== ENCOUNTER → 2025-02-23 15:13 | Outpatient (BNVA) | payer OTHER, SELFPAY | PROVIDERS: PCP Internal Medicine; Visit Provider Internal Medicine | DX: E11.65 Type 2 diabetes mellitus with hyperglycemia (principal); E66.3 Overweight; E78.00 Pure hypercholesterolemia, unspecified; D50.9 Iron deficiency anemia, unspecified; Z68.28 Body mass index [BMI] 28.0-28.9, adult | CPT/HCPCS: 83036; 99212 ==

== ENCOUNTER 2025-04-12 13:01 | Outpatient (AMB) | payer OTHER, SELFPAY ==
--- NOTE | 2025-04-12 13:10 | A.OFFVIS_ITS ---
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 #[id number] Pt reports reducing on sugar/pastries , watching on total carbohydrate intake 45-60 g or less per meal, 2-3 meals/day, may have a snack once to twice a day fruits/yogurt, sugar free dessert denies constipation diarrhea/vomiting meal intake Eggs/bananas, tea oatmeal with milk rice/chicken/beans, salad, water physical activity: walks daily etoh/smoking ---- BS Monitoring Most Recent Diabetes Results: Cholesterol, (<200) 155 mg/dL 11/24/24 HDL Cholesterol, (>40) 37 mg/dL L 11/24/24 Triglycerides, (<150) 51 mg/dL 11/24/24 PFSH Surgical History No pertinent past surgical history Family History Mother No problems noted. Father No problems noted. Daughter No problems noted. Daughter No problems noted. Daughter No problems noted. Brother No problems noted. Brother No problems noted. Brother No problems noted. Brother No problems noted. Brother No problems noted. Brother No problems noted. Social History Housing: Other Alcohol intake: current Patient Tobacco Use Status: Never used Tobacco Tobacco use type: Cigarette e-Cigarette/Vaping Use: Never Used Second Hand Smoke Exposure: No service: No Current occupational status: unemployed Cognitive needs: No Hearing needs: No Vision needs: No Assessment & Plan Assessment & Plan (1) Type 2 diabetes mellitus with hyperglycemia: Code(s): E11.65 - Type 2 diabetes mellitus with hyperglycemia Category: Medical Plan: wt: 62 kg( 11/2023) 67 kg (02/2024) --- 69 kg (09/15 - 66 kg (12/15), 68 kg (04/16) Est kcal needs as per MSJ: 160-1700 (40% carb, 30% protein/fat) Est fluid needs as per 25-30 ml/d: 1800 Est prot per day as per 1 g/kg bw: 60-62 g Recommend fiber intake : 8-10 g per day and gradually increase to 25-28 g per day for women and 35-38 g for men or as tolerated Recommend sodium intake per day : less than 2000 mg Educated patient on: ( R = reviewed V = verbalizes understanding N/R = needs review N/A = not applicable * Food sources of carbohydrate, adequate serving sizes and its role in various health conditions: R , V * Differences between complex carbohydrates a simple carbohydrates, role of fiber in diet: R * Differences between types of fats and role in diet (mono on saturated fat fatty acids, saturated fatty acids, trans fats): R, V * Food sources of sodium in salt and healthy modifications for heart health in kidney health: R * Vitamins and minerals: R * Healthy plate method concept: R V * Physical activity: Benefits a precaution: R , V * Dietary prevention of Hyperglycemia: R , V * Patient Instructions: Continue choosing low sugar food options follow healthy plate method choosing complex carbohydrates Coding Level of Care Code Nutr Indiv Subseq (00463) Diagnoses Type 2 diabetes mellitus with hyperglycemia E11.65 Time Spent (min) 30
[2025-04-12 13:11] VITALS: BMI 29.3
== END 2025-04-12 13:52 | disposition home or self-care (01) ==
LOC: HO.ENCR 13:02
PROVIDERS: Visit Provider Dietitian, Registered
DX: E11.65 Type 2 diabetes mellitus with hyperglycemia (principal)

== ENCOUNTER → 2025-04-12 13:01 | Outpatient (BNVA) | payer OTHER, SELFPAY | PROVIDERS: Visit Provider Dietitian, Registered | DX: E11.65 Type 2 diabetes mellitus with hyperglycemia (principal) | CPT/HCPCS: 97803 ==

== ENCOUNTER 2025-06-02 14:03 | Outpatient (REF) | payer OTHER, SELFPAY ==
[2025-06-02 16:04] LABS: MANUAL DIFF FLAG NO
[2025-06-02 16:28] LABS: Hematocrit 34.4 % (37.0-47.0); Hemoglobin 11.9 g/dl (12.0-16.0); Imm Gran Abs Auto 0.01 X10*3/uL (0.00-0.03); Imm Gran Pct Auto 0.1 % (0.0-0.4); Lymphocytes Absolute Auto 3.3 X10*3/uL (1.2-4.9); Mean Corpuscular HGB Conc 34.6 g/dl (31.0-35.0); Mean Corpuscular Hemoglobin 28.5 pg (27.0-33.0); Mean Corpuscular Volume 82.5 fL (80.0-98.0); NRBC Abs Auto 0.000 X10*3/uL (0.0-0.012); NRBC Pct Auto 0.0 /100WBC (0.0-0.2); Platelet Count 327 X10*3/uL (160-400); Red Blood Count 4.17 X10*6/uL (4.20-5.50); Reticulocytes Absolute 0.082 X10*6/uL (0.026-0.095); White Blood Count 7.1 X10*3/uL (4.8-10.8)
[2025-06-02 16:37] LABS: Hemoglobin A1C 142.8315 umol/L; Total Hemoglobin (HGBA1C) 3240.3303 umol/L
[2025-06-02 16:55] LABS: Alanine Aminotransferase 21 U/L (0-31); Albumin Level 4.5 g/dL (3.5-5.0); Alkaline Phosphatase 57 U/L (39-117); Anion Gap 13 (12-20); Aspartate Amino Transferase 29 U/L (5-31); Blood Urea Nitrogen 13 mg/dL (9-16); Calcium 9.6 mg/dL (8.4-10.2); Carbon Dioxide 24 mmol/L (22-29); Chloride 106 mmol/L (96-108); Cholesterol 179 mg/dL (<200); Estimated Glomerular Filt Rate > 60; HDL Cholesterol 37 mg/dL (>40); Iron 65 mcg/dL (30-160); Percent Iron Saturation 18 % (15-50); Potassium 4.0 mmol/L (3.3-5.1); Sodium 139 mmol/L (135-145); Total Iron Binding Capacity 361 mcg/dL (228-428); Total Protein 7.9 g/dL (6.5-8.0); Triglycerides 131 mg/dL (<150); Unsaturated Iron Binding 296 ug/dL
[2025-06-02 17:02] LABS: Ferritin 9 ng/mL (10-122); Free T4 (Free Thyroxine) 1.00 ng/dL (0.71-1.85); Thyroid Stimulating Hormone 1.82 uIU/mL (0.32-4.0)
[2025-06-02 17:14] LABS: Folate 7.6 ng/mL (> or = 4.0); Vitamin B12 393 pg/mL (200-900)
== END 2025-06-02 14:04 | disposition home or self-care (01) ==
LOC: HO.HHCL 14:03
PROVIDERS: PCP Internal Medicine; Visit Provider Internal Medicine
DX: E11.65 Type 2 diabetes mellitus with hyperglycemia (principal); E78.00 Pure hypercholesterolemia, unspecified; D50.9 Iron deficiency anemia, unspecified
CPT/HCPCS: 36415; 80053; 80061; 82043; 82570; 82607; 82728; 82746; 83036; 83540; 84439; 84443; 85025; 85045

== ENCOUNTER 2025-06-17 15:24 | Outpatient (AMB) | payer OTHER, SELFPAY ==
--- NOTE | 2025-06-17 15:26 | A.OFFPC_ITS ---
Vital Signs 06/17/25 15:27 Height 5 ft Weight 148 lb BMI 28.9 BP 110/68 Blood Pressure Location Lt brachial Position Sitting Pulse 78 Pulse Source Pulse Oximeter Pulse Oximetry (%) 98 Oxygen Delivery Method Room Air Intake Visit Reasons: DM Allergies No Known Allergies Allergy (Verified 06/17/25 15:27) Medication List - Last Reconciled 06/17/25 by Carlita Jin MD ascorbate calcium (vitamin C) 500 mg PO DAILY blood sugar diagnostic (FreeStyle Lite Strips) As directed check the BS TID blood-glucose meter (FreeStyle Lite Meter kit) As directed ferrous sulfate (Feosol) 325 mg PO DAILY lancets (FreeStyle Lancets) As directed check BS QD Tobacco use date assessed: 02/23/25 Dental Screening Dental Screen Date: 02/23/25 HPI DM HPI Details ashlee [id number] [facility], [place] interpret Location LMP 06/11/2025 5days 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 Father No problems noted. Daughter No problems noted. Daughter No problems noted. Daughter No problems noted. Brother No problems noted. Brother No problems noted. Brother No problems noted. Brother No problems noted. Brother No problems noted. Brother No problems noted. Social History Housing: Other Alcohol intake: current Patient Tobacco Use Status: Never used Tobacco Tobacco use type: Cigarette e-Cigarette/Vaping Use: Never Used Second Hand Smoke Exposure: No service: No Current occupational status: unemployed Cognitive needs: No Hearing needs: No Vision needs: No Questionnaire PHQ-9 Over the last 2 weeks, how often have you been bothered by any of the following problems? 1. Little interest or pleasure in doing things: more than half the days 2. Feeling down, depressed, or hopeless: nearly every day 3. Trouble falling or staying asleep, or sleeping too much: not at all 4. Feeling tired or having little energy: not at all 5. Poor appetite or overeating: not at all 6. Feeling bad about yourself - or that you are a failure or have let yourself or your family down: not at all 7. Trouble concentrating on things, such as reading the newspaper or watching television: not at all 8. Moving or speaking so slowly that other people could have noticed. Or the opposite - being so fidgety or restless that you have been moving around a lot more than usual: not at all 9. Thoughts that you would be better off or of hurting yourself in some way: not at all Total score: 5 Depression Screening Interpretation: Positive Depression Screening Done: Yes Source: Developed by Drs. Eduardo Araujo, Ximena Chavez, Nabeel Goode and colleagues, with an educational reinaldo from [employer]. Thrive Questionnaire Date Thrive assessed: 02/23/25 AMANUEL-7 AMB Questionnaire AMANUEL-7 Date AMANUEL - 7 assessed: 02/23/25 Source: Developed by Drs. Eduardo Araujo, Ximena Chavez, Nabeel Goode and colleagues, with an educational reinaldo from [employer]. Physical exam (Primary Care) Vital Signs: Last Vital Signs Pulse 78 06/17/25 15:27 BP 110/68 06/17/25 15:27 Pulse Ox 98 06/17/25 15:27 Oxygen Delivery Method Room Air 06/17/25 15:27 BMI result Body Mass Index 28.9 Tobacco/Smoking Status: Tobacco use Status Tobacco use date assessed 02/23/25 06/17/25 15:27 Patient Tobacco Use Status Never used Tobacco 06/17/25 15:27 Tobacco use type Cigarette 06/17/25 15:27 e-Cigarette/Vaping Use Never Used 06/17/25 15:27 PHQ-9: PHQ-9 Score PHQ-9: Total score 5 06/17/25 15:44 Depression Screening Interpretation: Positive Thrive Assessment: Date of Thrive Assessment Date Thrive assessed 02/23/25 06/17/25 15:27 Const General: alert; No acute distress Eyes Conjunctivae: conjunctivae normal Resp Auscultation: clear to auscultation bilaterally Cardio Rate: regular rate Rhythm: regular rhythm GI Inspection: Yes normal to inspection Extrem General: Yes normal to inspection and No edema Coding Level of Care Code Est Pt Level 4 (23668) Complex EM visit Add On G2211 Diagnoses Type 2 diabetes mellitus with hyperglycemia E11.65 Hypercholesterolemia E78.00 Overweight (BMI 25.0-29.9) E66.3 Iron deficiency anemia D50.9 Assessment & Plan Assessment & Plan (1) Type 2 diabetes mellitus with hyperglycemia: Code(s): E11.65 - Type 2 diabetes mellitus with hyperglycemia Category: Medical Plan: Decrease the amount of carbohydrate intake, pasta, bread, rice and potatoes are all sugar and that is aside from all the sweet stuff, remember that fruits are good but they are Sweet also. Hemoglobin A1c goal of less than 6.5. Patient is at goal diet controlled (2) Hypercholesterolemia: Code(s): E78.00 - Pure hypercholesterolemia, unspecified Category: Medical Plan: Avoid fried foods, chicken skin, eggs, butter margarine, pastries and meat. Be it pork or beef they have a lot of cholesterol LDL goal of less than 100 and triglyceride of less than 150. Discussion with the patient regarding medications (3) Overweight (BMI 25.0-29.9): Code(s): E66.3 - Overweight Category: Medical Plan: Diet and exercise (4) Iron deficiency anemia: Code(s): D50.9 - Iron deficiency anemia, unspecified Category: Medical Plan: Patient has iron deficiency anemia and would recommend taking iron and vitamin- C. Plan History of Present Illness The patient is a 40-year-old female presenting with a follow-up for diabetes mellitus, hypercholesterolemia, and iron deficiency anemia. The patient has a history of diabetes mellitus, with a recent hemoglobin A1c of 6.2, indicating diet-controlled diabetes. Her fasting blood sugar was recorded at 151 mg/dL, which is above the normal range. She has been managing her diabetes through dietary measures without the need for medication. The patient also has hypercholesterolemia, with an LDL cholesterol level of 116 mg/dL, which is above the target goal of less than 100 mg/dL due to her diabetes. She has been advised on dietary modifications to manage her cholesterol levels. The patient is diagnosed with iron deficiency anemia, with a hemoglobin level of 11.9 g/dL. She has been recommended to take iron supplements along with vitamin C to enhance absorption. Her anemia is likely exacerbated by menstrual bleeding, which she reports as normal in duration but heavy in flow. Health Maintenance - Vaccinations: Discussed flu, COVID, pneumonia, and tetanus vaccines. Social History Review of Systems - Endocrine: Reports diabetes mellitus, denies any new symptoms. - Hematologic: Reports iron deficiency anemia, denies any new symptoms. - Cardiovascular: Reports hypercholesterolemia, denies any new symptoms. - Musculoskeletal: Reports cramping in feet, denies any other musculoskeletal symptoms. Physical Exam Results - Labs: Hemoglobin A1c 6.2%, fasting blood sugar 151 mg/dL, LDL cholesterol 116 mg/dL, hemoglobin 11.9 g/dL. Plan Patient was informed and verbally consented to the use of an ambient scribe for clinic note documentation during this visit. 1. Diabetes Mellitus The patient's diabetes mellitus is currently diet-controlled with a hemoglobin A1c of 6.2%. No medication is required at this time, but the patient is advised to maintain dietary control and monitor blood sugar levels regularly. 2. Hypercholesterolemia The patient's LDL cholesterol is 116 mg/dL, which is above the target goal of less than 100 mg/dL. The patient is advised to follow dietary modifications and has been prescribed a cholesterol-lowering medication to be taken at night. 3. Iron Deficiency Anemia The patient has iron deficiency anemia with a hemoglobin level of 11.9 g/dL. She is advised to take iron supplements along with vitamin C to improve absorption and manage anemia. Discussion Notes During the consultation, I discussed the management of diabetes mellitus, emphasizing the importance of dietary control to maintain hemoglobin A1c levels below 6.5%. For hypercholesterolemia, I recommended dietary changes and prescribed a cholesterol-lowering medication to be taken at night. Regarding iron deficiency anemia, I advised the patient to take iron supplements with vitamin C to enhance absorption. We also discussed the importance of vaccinations, including flu, COVID, pneumonia, and tetanus, as part of preventative care. Patient Instructions - Continue dietary control to manage diabetes and monitor blood sugar levels regularly. - Take prescribed cholesterol medication at night and follow dietary modifications to lower LDL cholesterol. - Take iron supplements with vitamin C to improve absorption and manage anemia. - Schedule and receive recommended vaccinations, including flu, COVID, pneumonia, and tetanus. Orders: Orders Complete Blood Count Auto Diff 3 Months E78.00 - Pure hypercholesterolemia, unspecified Hemoglobin A1c 3 Months E78.00 - Pure hypercholesterolemia, unspecified Lipid Panel 3 Months E78.00 - Pure hypercholesterolemia, unspecified Comprehensive Met. Panel 3 Months E78.00 - Pure hypercholesterolemia, unspecified Ferritin 3 Months E78.00 - Pure hypercholesterolemia, unspecified IRON PROFILE 3 Months E78.00 - Pure hypercholesterolemia, unspecified Reticulocyte Count 3 Months E78.00 - Pure hypercholesterolemia, unspecified Magnesium Today E78.00 - Pure hypercholesterolemia, unspecified Medications: New ferrous sulfate (Feosol) 325 mg PO DAILY 90 tabs 0RF D50.9 - Iron deficiency anemia, unspecified simvastatin 5 mg PO BEDTIME 30 tabs 3RF E78.00 - Pure hypercholesterolemia, unspecified ascorbate calcium (vitamin C) 500 mg PO DAILY 30 tabs 4RF D50.9 - Iron deficiency anemia, unspecified Refilled blood sugar diagnostic (FreeStyle Lite Strips) As directed check the BS TID 300 ea 3RF E11.65 - Type 2 diabetes mellitus with hyperglycemia, E11.9 - Type 2 diabetes mellitus without complications blood-glucose meter (FreeStyle Lite Meter kit) As directed 1 ea 0RF E11.65 - Type 2 diabetes mellitus with hyperglycemia
[2025-06-17 15:27] VITALS: BP 110/68; PULSE 78; O2SAT 98; BMI 28.9
== END 2025-06-17 16:14 | disposition home or self-care (01) ==
LOC: HO.HMCH 15:24
PROVIDERS: PCP Internal Medicine; Visit Provider Internal Medicine
DX: E11.65 Type 2 diabetes mellitus with hyperglycemia (principal); E78.00 Pure hypercholesterolemia, unspecified; E66.3 Overweight; D50.9 Iron deficiency anemia, unspecified

== ENCOUNTER → 2025-06-17 15:24 | Outpatient (BNVA) | payer OTHER, SELFPAY | PROVIDERS: PCP Internal Medicine; Visit Provider Internal Medicine | DX: E11.65 Type 2 diabetes mellitus with hyperglycemia (principal); E78.00 Pure hypercholesterolemia, unspecified; E66.3 Overweight; Z68.28 Body mass index [BMI] 28.0-28.9, adult; D50.9 Iron deficiency anemia, unspecified; Z13.31 Encounter for screening for depression | CPT/HCPCS: 99212 ==

== ENCOUNTER 2025-07-29 10:30 | Outpatient (REF) | payer OTHER, SELFPAY ==
[2025-07-30 04:08] LABS: Bacterial Vaginosis PCR POSITIVE (Negative); Candida Group PCR NOT DETECTED (Not Detect); Candida glab krusei PCR NOT DETECTED (Not Detect); Trichomonas vaginalis PCR NOT DETECTED (Not Detect)
[2025-07-30 04:39] LABS: CT PCR NOT DETECTED (Not Detect.); NG PCR NOT DETECTED (Not Detect.)
== END 2025-07-29 10:31 | disposition home or self-care (01) ==
LOC: HO.LNP 10:30
PROVIDERS: PCP Internal Medicine; Visit Provider Advanced Practice Midwife
DX: N92.0 Excessive and frequent menstruation with regular cycle (principal); E11.65 Type 2 diabetes mellitus with hyperglycemia; Z12.4 Encounter for screening for malignant neoplasm of cervix; Z87.42 Personal history of other diseases of the female genital tract; Z20.2 Contact with and (suspected) exposure to infections with a predominantly sexual mode of transmission; Z79.4 Long term (current) use of insulin
CPT/HCPCS: 81515; 87491; 87591; 87626; 88175; 99395

== ENCOUNTER 2025-07-29 10:30 | Outpatient (AMB) | payer OTHER, SELFPAY ==
--- NOTE | 2025-07-29 10:30 | MHC.OFFVIS ---
Vital Signs 07/29/25 10:48 Height 5 ft Weight 144 lb BMI 28.1 Intake Visit Reasons: FANCY STITCHER annual exam/ needs solution developer Manager Metal Required: Yes Manager Metal Language: Citizen [place] Creole Manager Metal Services: Manager Metal Present ([employer] Manager Metal Name: Anup [id number] Information Interpreted: clinical only Worker'S Compensation Claims Examiner: Worker'S Compensation Claims Examiner Present (Rama) Accompanied by: Self / Same As Patient Allergies No Known Allergies Allergy (Verified 07/29/25 10:47) Medication List - Last Reconciled 07/29/25 by Judy Wood CNM ascorbate calcium (vitamin C) 500 mg PO DAILY blood sugar diagnostic (FreeStyle Lite Strips) As directed check the BS TID blood-glucose meter (FreeStyle Lite Meter kit) As directed ferrous sulfate (Feosol) 325 mg PO DAILY lancets (FreeStyle Lancets) As directed check BS QD simvastatin 5 mg PO BEDTIME Is last menstrual period known: Yes Last menstrual period: 07/02/25 Post menopausal: No Patient : No HPI HPI FANCY STITCHER annual exam/ needs solution developer: Details: Patient is scheduled here is a new patient services clerk exam. She had come last year but she was very obviously sick when she arrived at the window and she was reappointed in the future and given a mask . She needs a [place] Creole solution developer through the tablet and we used a couple of interpreters during this visit. (no female interpreters were available) She has never had a patient services clerk visit. She says she is sexually active with her partner, but she does not see him that much and they do not live together, and she is trying to get she is 40 years old she says her cycles are regular she does not exactly write them down but in thinking about it and going through her history she believes that they are usually about 25-26 day cycles she says she used to be able to tell when she was ovulating but she does not get those same signs anymore. She says that is sometimes before her. She feels something kind of jumping around in her abdomen and she is just wondering what that is. Denies constipation. she says she occasionally might have diarrhea, but not very often. She would like it if I could give her some medicine to help her get . She says she is diabetic and her sugars are fairly well controlled she says the last time she checked was about 5 days ago and it was about 130 but that was a fasting level. She tries to eat well and she is not taking any medicine though she does take vitamins and iron. She says she does have the ability to pay for transportation if she needs to. 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 [facility] Medical History (Updated 07/29/25 @ 11:59 by Judy Wood CNM) Anemia Diabetes Surgical History No pertinent past surgical history Family History Mother No problems noted. Father No problems noted. Daughter No problems noted. Daughter No problems noted. Daughter No problems noted. Brother No problems noted. Brother No problems noted. Brother No problems noted. Brother No problems noted. Brother No problems noted. Brother No problems noted. Social History Housing: Other Alcohol intake: current Patient Tobacco Use Status: Never used Tobacco Tobacco use type: Cigarette e-Cigarette/Vaping Use: Never Used Second Hand Smoke Exposure: No service: No Current occupational status: unemployed Cognitive needs: No Hearing needs: No Vision needs: No Female Reproductive History Menstrual Age of Menarche: 14 Duration of menses: 3-5 days Date of last menstrual period: 07/02/25 control method: none Total pregnancies: 0 Physical Exam Vital Signs: BMI result Body Mass Index 28.1 Const General: healthy appearing, comfortable, no acute distress, well developed and alert Nutritional Appearance: average body habitus Orientation/consciousness: patient oriented x3 Limitations: no limitations HEENT Head: Yes normocephalic Neck Neck: Yes normal visual inspection Thyroid: Thyroid normal Chest Chest palpation & inspection: normal inspection of the chest Breast/axilla inspection: normal inspection of the breasts and normal inspection of the axillae Breast/axilla palpation: normal palpation of the breasts and normal palpation of the axillae Resp Effort & Inspection: normal respiratory effort GI Inspection: Yes normal to inspection, No Abdominal wall edema and No distended Palpation (GI): Soft to palpation and nontender General: Yes bladder normal to palpation External Female Exam: normal external appearance and normal appearance of the urethra Speculum Exam - Vagina: normal appearance of the vagina, normal palpation and normal vaginal discharge Speculum Exam - Cervix: normal appearance of the cervix, normal palpation and nontender Bimanual exam- vagina & uterus: normal bimanual exam, normal palpation, uterine size normal, bladder normal to palpation, consistency normal, normal palpation, uterine mobility normal, uterine shape normal, No Cervical tenderness present, non-tender and no cervical motion tenderness Bimanual Exam- Adnexa, other: normal adnexae, no masses, normal and No adnexal tenderness Neuro General: patient oriented x3 Assessment & Plan Assessment & Plan (1) Type 2 diabetes mellitus with hyperglycemia: Code(s): E11.65 - Type 2 diabetes mellitus with hyperglycemia Category: Medical (2) Cervical cancer screening: Code(s): Z12.4 - Encounter for screening for malignant neoplasm of cervix Category: Medical (3) Short menstrual cycle: Comment: 25-26 days Code(s): N92.0 - Excessive and frequent menstruation with regular cycle Category: Medical (4) Hx of infertility: Comment: Has been trying to get for a while has short cycles... Code(s): Z87.42 - Personal history of other diseases of the female genital tract Category: Medical Plan -----Discussed in this visit the following: healthy balanced diet, regular and consistent exercise, getting recommended health screens, doing the best she can for her particular health concerns, kegel exercises, pap smear screening and followup recommendations, mammography screening and SBE, normal changes in cycles in her life stage--- .--Discussed that after age 35 the risks of infertility, risks of miscarriage, and chromosomal abnormalities are increased, as well as the risk of complications should she can see if, including diabetes and hypertensive disorders of , pre term delivery and others. I recommend starting vitamins if she has not already started. Discussed that these risks or go up with time. They are much more increased if somebody has any pre-existing conditions. I discussed that we are not able to provide infertility services, and also I reviewed the importance of having the best glycemic control if considering a at all and that if she did get she would immediately need to seek high-risk care at [facility]. Discussed that she would be considered high-risk because of her pre-existing diabetes and also her age and the both factors would necessitate that she be seen very early in the and have excellent glycemic control and any important studies would be done. I discussed that it is clear that she endeavors to take very good care of herself and eating well and in general she tries to avoid a lot of medication and she says her doctor knows that and tries not to give her too many medicines either. Discussed that in the experts caring for patients with diabetes would want her glucose to be even in tighter control. Today I did Pap smear and testing for gonorrhea chlamydia trichomoniasis as well as bacterial vaginosis and yeast her nulliparous cervix which was deep in her pelvis was difficult to find but healthy-appearing and they mucosa was very healthy and smooth though her cervix was friable with the Pap. I reviewed her cycles and when she was most likely to be ovulating based simply on the dates. Based on her cycle history I surmise that she might be about to get her period any day now and she confirmed that she feels it is coming either today or tomorrow. I reviewed that she might be more likely to ovulate very early in her cycle as well since her periods are on the shorter side and that it would be good for her to start becoming sexually active around day 10 11 or 12. She will not be living with her partner during this coming cycle but maybe living with him after that. Discussed keeping a calendar with her. And any symptoms of ovulation which I went over with her. Again I apologize that we can not provide infertility services, I told her I would review her labs and if there was anything else needed I would order it it appears that she was mildly anemic her thyroid level was within normal limits in May and she did have a slightly elevated blood sugar so she is not entirely euglycemic, I will repeat the blood sugar and CBC and I am ordering a pelvic ultrasound though I do not expect any abnormal findings. We will have a visit after the ultrasound. It appears that her primary care provider has three-month lab repeat studies ordered already and I have nothing to add to his orders. Orders: Orders US pelvic and transvaginal Today E11.65 - Type 2 diabetes mellitus with hyperglycemia, N92.0 - Excessive and frequent menstruation with regular cycle, Z12.4 - Encounter for screening for malignant neoplasm of cervix, Z87.42 - Personal history of other diseases of the female genital tract Coding Level of Care Code New Pt Prev Care 18-39yr([id number] Diagnoses Type 2 diabetes mellitus with hyperglycemia E11.65 Cervical cancer screening Z12.4 Short menstrual cycle N92.0 Hx of infertility Z87.42
[2025-07-29 10:48] VITALS: BMI 28.1
== END 2025-07-29 13:13 | disposition home or self-care (01) ==
LOC: HO.HWSM 10:30
PROVIDERS: PCP Internal Medicine; Visit Provider Advanced Practice Midwife
DX: Z01.419 Encounter for gynecological examination (general) (routine) without abnormal findings (principal); E11.65 Type 2 diabetes mellitus with hyperglycemia; N92.0 Excessive and frequent menstruation with regular cycle; Z87.42 Personal history of other diseases of the female genital tract
CPT/HCPCS: 99395; 99459